=== PATIENT | female | born 1945 | race Caucasian/White ===

== ENCOUNTER 2019-11-25 03:09 | Inpatient (IN) | payer MEDICARE ==
[~2019-11-25] VITALS: Ht 152.4 cm; Wt 47.1 kg
[~2019-11-25 03:09] MED LIST: ALBU2.5V14 NEB; ALPR0.5T6 PO; ASPI-482 PO; CYCL10TA2 PO; DIGO0.12 PO; FURO-69 PO; HYDR-2761 PO; IPRA4AER IH; LISI-334 PO; LOVA40TA2 PO; RANI75TA89 PO; SERT50TA8 PO
[2019-11-25 03:51] LABS: BILIRUBIN,URINE NEGATIVE (NEG); CLARITY,URINE TURBID; COLOR,URINE YELLOW; NITRITE,URINE POSITIVE (NEG); PROTEIN,URINE 30 mg/dL (NEG-TRACE); UROBILINOGEN,URINE 0.2 mg/dL (0.2 mg/dL)
[2019-11-25 03:54] LABS: RBC,URINE OCC /HPF (0-2)
--- NOTE | 2019-11-25 03:54 | PHYS DOC ---
Past Medical History Past Medical History: CHF, COPD, Hypertension, Other Additional Past Medical Histor: EMPHYSEMA, KIDNEY DISEASE, MYLODYSPLASTIC SYNDROME Past Surgical History: Other Additional Past Surgical Histo: SUPRAPUBIC CATHATER PLACEMENT Smoking Status: Former Smoker Alcohol Use: None Drug Use: None General Adult EDM: Chief Complaint: NAUSEA/VOMITING/DIARRHA HPI: HPI: Erin Armstrong is a 74-year-old female who presents with 2 weeks of general malaise. She states that over the last 2 weeks she has been constantly feeling general malaise as well as lightheadedness when she stands up beginning about 1 week ago. She states that approximately 5 hours prior to arrival she had an episode of diarrhea followed by nausea with 3 episodes of vomiting clear fluid. She affirms suprapubic abdominal pain that feels "like there is a ball down there". Patient has a suprapubic catheter that has been in place for approximately 2 weeks. She states that she has used a suprapubic catheter for several years. Patient affirms a history of myelodysplastic syndrome for which she was managed by the [facility] and received a chemotherapeutic. She has not been treated for this in some time. Patient states that she has lost approximately 40 pounds, 135-95, in the last 6 months. Patient affirms a history of atrial fibrillation and denies palpitations and chest pain since onset. Patient has history of COPD and is on 3 L home oxygen. She currently affirms shortness of breath and a dry cough, but these are not new problems for her. Review of Systems: Review of Systems: Constitutional: Denies fever; affirms chills; weight loss Eyes: Denies redness or eye pain HENT: Denies nasal congestion or sore throat Respiratory: Affirms cough and shortness of breath Cardiovascular: Denies chest pain or palpitations GI: Affirms abdominal pain, nausea, and vomiting : Denies dysuria or hematuria; suprapubic catheter use Musculoskeletal: Denies back pain or joint pain Integument: Denies rash or skin lesions Neurologic: Denies headache, focal weakness or sensory changes Complete systems were reviewed and found to be within normal limits, except as documented in this note. Current Medications: Current Medications Medications (Trade) Dose Ordered Sig/Glenn Start Time Stop Time Status Last Admin Dose Admin Famotidine (Pepcid Vial) 20 mg 1X ONCE 11/25/19 04:00 11/25/19 04:01 Ondansetron HCl (Zofran) 4 mg 1X ONCE 11/25/19 04:00 11/25/19 04:01 Sodium Chloride 1,000 ml @ 1,000 mls/hr 1X ONCE 11/25/19 04:00 11/25/19 04:59 Allergies: Allergies: Allergies Coded Allergies Type Severity Reaction Last Updated Verified Sulfa (Sulfonamide Antibiotics) Allergy Mild HIVES 09/25/13 Yes Physical Exam: PE: Constitutional: malnourished, no acute distress, non-toxic appearance HENT: Normocephalic, atraumatic Neck: Normal range of motion, no tenderness, supple Lungs & Thorax: No respiratory distress, equal chest rise and fall, breath sounds diminished in all lung contreras Abdomen: Soft, suprapubic tenderness to palpation, suprapubic catheter is in place without surrounding erythema Skin: dry, no erythema, no rash, cold to the touch, appears thin Extremities: No tenderness, ROM intact, no edema, radial 2+, dorsalis pedis 2+, posterior tibial 2+ Neurologic: Alert and oriented X 3, normal motor function, normal sensory function, no focal deficits noted Psychologic: Affect normal, judgment normal EKG: EKG: @ 332 Normal sinus rhythm at [address] abnormalities No T wave abnormalities QRS 82 ms QT 316 ms 395 QTc Radiology/Procedures: Radiology/Procedures: PROCEDURE: CT CHEST ABDOMEN PELVIS WO Examination: CT chest abdomen pelvis without contrast HISTORY: History of cough, abdominal pain COMPARISON: None available Technique: Axial CT images of the chest abdomen pelvis were performed without contrast. Coronal and sagittal reformats are performed. Exposure: One or more of the following individualized dose reduction techniques were utilized for this examination: 1. Automated exposure control 2. Adjustment of the mA and/or kV according to patient size 3. Use of iterative reconstruction technique FINDINGS: The central airways are patent. Heart size grossly appears unremarkable. Coronary artery calcifications identified. No radiologically significant mediastinal lymphadenopathy is identified. Moderate bilateral lung emphysematous changes. Minimal airspace opacities identified in the right upper lobe, left lingula and in the bibasilar lungs likely atelectasis or infiltrates No evidence of free air identified in the abdomen. The evaluation of the solid organs is limited due to lack of IV contrast. The evaluation of bowel is limited due to lack of oral contrast. The visualized noncontrasted liver, spleen, adrenals grossly appears unremarkable Cholecystectomy clips identified. The stomach is mildly distended. The visualized pancreas grossly appears unremarkable The small bowel is nondilated. Tellez catheter balloon identified in the urinary bladder. Multiple stones identified in the urinary bladder the largest measuring 9 mm. No evidence of intrarenal collecting system calculi or hydronephrosis. Moderate aortic atherosclerosis. Sclerotic densities identified in the bilateral hip joint likely changes of avascular necrosis.. Mild degenerative changes thoracic spine. Moderate degenerative changes lumbar spine most at L4-L5 vertebral level. IMPRESSION: 1. Urinary bladder stones. 2. Mild airspace opacities identified in the lungs likely atelectasis or infiltrates. Moderate bilateral lung emphysematous changes. 3. Cholecystectomy changes. 4. Avascular necrosis bilaterally femoral heads. Electronically signed by: Oc Jordan MD (11/25/2019 4:49 AM) [id number] Course & Med Decision Making: Course & Med Decision Making Pertinent Labs and Imaging studies reviewed. (See chart for details) [] Dragon Disclaimer: Dragon Disclaimer: This electronic medical record was generated, in whole or in part, using a voice recognition dictation system. Departure Departure Impression: Primary Impression: Generalized weakness Additional Impressions: Complicated UTI (urinary tract infection) Person under investigation for COVID-19 Disposition: ADMITTED INPATIENT Admitting Physician: CLAUDIO (Riffel) Condition: STABLE Referrals: ESTEBAN DE LUNA MD (PCP) Justicifation of Admission Dx: Justifications for Admission: Justification of Admission Dx: Yes Comments: Generalized weakness, complicated UTI, COVID PUI COVID-19 Assessment: COVID-19 Patient Risks: Age 65 or older: Yes Sign of co-morbidity: Yes Exp to person + for COVID: No Exp to PUI: No Travel from affected area: No Lower respiratory symptoms: Yes Fever: No PPE Use: Full PPE with N95 mask or PAPR: Yes KATERYNA NELSON DO Nov 25, 2019 03:54
[2019-11-25 03:55] LABS: BACTERIA,URINE MANY /HPF (0-FEW); SQUAMOUS EPITHELIAL CELL,UR FEW /LPF; WBC,URINE TNTC /HPF (0-4)
[2019-11-25] MEDS ORDERED: IV NORMAL SALINE 1000ML BAG 1,000 ML IV ONE (04:00)
[2019-11-25] MEDS ORDERED: FAMOTIDINE 20 MG/2 ML VIAL IVP ONE (04:00)
[2019-11-25] MEDS ORDERED: DICYCLOMINE 20 MG/2 ML VIAL. IM ONE (04:00)
[2019-11-25] MEDS ORDERED: ONDANSETRON PF 4 MG/2 ML VIAL. IVP ONE (04:00)
[2019-11-25 04:07] LABS: BASO % 0 % (0-3); EOS % 0 % (0-3); HEMOGLOBIN 9.3 g/dL (12.0-15.5); LYMPH # 0.6 x10^3/uL (1.0-4.8); LYMPH % 5 % (24-48); MEAN CORPUSCULAR HEMOGLOBIN 31 pg (25-35); MEAN CORPUSCULAR HGB CONC 32 g/dL (31-37); MEAN CORPUSCULAR VOLUME 98 fL (79-100); MONO # 0.5 x10^3/uL (0.0-1.1); MONO % 4 % (0-9); NEUT # 11.8 x10^3/uL (1.8-7.7); NEUT % 91 % (31-73); PLATELET COUNT 193 x10^3/uL (140-400); RED BLOOD COUNT 2.96 x10^6/uL (3.50-5.40); RED CELL DISTRIBUTION WIDTH 12.8 % (11.5-14.5)
--- NOTE | 2019-11-25 04:10 | EKG ---
[facility] [address] [place] [address] Test Date: 2019-11-25 Test Time: 03:32:11 Pat Name: BOB KINGSLEY Department: Room: Gender: F Pediatric Care Coordinator: [id number] : 1945 Requested By: KATERYNA NELSON Order Number: [id number] Reading MD: Measurements Intervals [place] Rate: 94 P: 59 WI: 138 QRS: 77 QRSD: 82 T: 60 QT: 316 QTc: 395 Interpretive Statements SINUS RHYTHM NORMAL ECG RI6.02 No previous ECG available for comparison
[2019-11-25 04:15] LABS: BLOOD UREA NITROGEN 29 mg/dL (7-20); BUN/CREATININE RATIO 22 (6-20); CALCIUM 9.3 mg/dL (8.5-10.1); CHLORIDE 98 mmol/L (98-107); CREATININE 1.3 mg/dL (0.6-1.0); GFR 40.3; GLUCOSE 147 mg/dL (70-99); POTASSIUM 4.2 mmol/L (3.5-5.1); SODIUM 143 mmol/L (136-145)
[2019-11-25 04:18] LABS: ANION GAP 0 (6-14); CARBON DIOXIDE > 45 mmol/L (21-32); PROTHROMBIN TIME PATIENT 12.2 SEC (11.7-14.0)
[2019-11-25 04:21] LABS: ALBUMIN 3.4 g/dL (3.4-5.0); ALBUMIN/GLOBULIN RATIO 1.1 (1.0-1.7); ALK PHOS 61 U/L (46-116); ALT (SGPT) 19 U/L (14-59); AST (SGOT) 18 U/L (15-37); LIPASE 172 U/L (73-393); TOTAL BILIRUBIN 0.5 mg/dL (0.2-1.0); TOTAL PROTEIN 6.5 g/dL (6.4-8.2)
[2019-11-25] MEDS ORDERED: cefTRIAXone IV Push 1 GM VIAL. IVP ONE (04:30)
[2019-11-25 04:31] LABS: CREATINE KINASE 24 U/L (26-192)
--- NOTE | 2019-11-25 04:52 | RAD ---
Examination: CT chest abdomen pelvis without contrast HISTORY: History of cough, abdominal pain COMPARISON: None available Technique: Axial CT images of the chest abdomen pelvis were performed without contrast. Coronal and sagittal reformats are performed. Exposure: One or more of the following individualized dose reduction techniques were utilized for this examination: 1. Automated exposure control 2. Adjustment of the mA and/or kV according to patient size 3. Use of iterative reconstruction technique FINDINGS: The central airways are patent. Heart size grossly appears unremarkable. Coronary artery calcifications identified. No radiologically significant mediastinal lymphadenopathy is identified. Moderate bilateral lung emphysematous changes. Minimal airspace opacities identified in the right upper lobe, left lingula and in the bibasilar lungs likely atelectasis or infiltrates No evidence of free air identified in the abdomen. The evaluation of the solid organs is limited due to lack of IV contrast. The evaluation of bowel is limited due to lack of oral contrast. The visualized noncontrasted liver, spleen, adrenals grossly appears unremarkable Cholecystectomy clips identified. The stomach is mildly distended. The visualized pancreas grossly appears unremarkable The small bowel is nondilated. Tellez catheter balloon identified in the urinary bladder. Multiple stones identified in the urinary bladder the largest measuring 9 mm. No evidence of intrarenal collecting system calculi or hydronephrosis. Moderate aortic atherosclerosis. Sclerotic densities identified in the bilateral hip joint likely changes of avascular necrosis.. Mild degenerative changes thoracic spine. Moderate degenerative changes lumbar spine most at L4-L5 vertebral level. IMPRESSION: 1. Urinary bladder stones. 2. Mild airspace opacities identified in the lungs likely atelectasis or infiltrates. Moderate bilateral lung emphysematous changes. 3. Cholecystectomy changes. 4. Avascular necrosis bilaterally femoral heads. Electronically signed by: Oc Jordan MD (11/25/2019 4:49 AM) [facility]
[2019-11-25] MEDS ORDERED: ONDANSETRON PF 4 MG/2 ML VIAL. IV PRN (05:00)
[2019-11-25] MEDS ORDERED: fentaNYL PF VIAL 100 MCG/2 ML VIAL IV ONE (05:15)
[2019-11-25 06:30] LABS: % BANDS 1 % (0-9); % LYMPHS 7 % (24-48); % MONOS 2 % (0-10); % SEGS 90 % (35-66); PLT ESTIMATE ADEQUATE (ADEQUATE)
[2019-11-25] MEDS ORDERED: AZEL23SP NS (06:32)
[2019-11-25 06:45] VITALS: BP 140/60
[2019-11-25] MEDS: fentaNYL PF VIAL 100 MCG/2 ML VIAL IV PRN ×2 (08:45→10:11)
[2019-11-25] MEDS: IV NORMAL SALINE 1000ML BAG 1,000 ML IV SCH ×2 (10:00→17:09)
--- NOTE | 2019-11-25 10:16 | PDOC1 ---
History and Physical Date of Admission Date of Admission DATE: 11/25/19 TIME: 10:01 Identification/Chief Complaint Chief Complaint Weakness Source Source: Patient History of Present Illness History of Present Illness Patient is a 74-year-old female with past medical history of myelodysplastic syndrome, suprapubic catheter, COPD on 3 L of home oxygen, who presents for worsening generalized weakness over the past 2 weeks. The day of admission patient had associated diarrhea nausea and vomiting x3. She states she has had a suprapubic catheter in place for several years, recently exchanged 2 weeks ago. She previously received chemotherapy at [facility], and states her last treatment was in August 2017. She was at home with her son. Currently complains of some mild suprapubic tenderness and nausea. Denies chest pain, denies fever. Past Medical History Past Medical History COPD on 3 L home oxygen, emphysema, CHF, atrial fibrillation, hypertension, CKD, myelodysplastic syndrome Past Surgical History Past Surgical History Suprapubic catheter placement Family History Family History: Kidney Disease Social History Smoke: Quit ALCOHOL: none Drugs: None Current Medications Current Medications Current Medications Ondansetron HCl (Zofran) 4 mg 1X ONCE IVP Last administered on 11/25/19at 03:51; Start 11/25/19 at 04:00; Stop 11/25/19 at 04:01; Status DC Famotidine (Pepcid Vial) 20 mg 1X ONCE IVP Last administered on 11/25/19at 03:51; Start 11/25/19 at 04:00; Stop 11/25/19 at 04:01; Status DC Sodium Chloride 1,000 ml @ 1,000 mls/hr 1X ONCE IV Last administered on 11/25/19at 03:51; Start 11/25/19 at 04:00; Stop 11/25/19 at 04:59; Status DC Dicyclomine HCl (Bentyl) 20 mg 1X ONCE IM Last administered on 11/25/19at 03:51; Start 11/25/19 at 04:00; Stop 11/25/19 at 04:01; Status DC Ceftriaxone Sodium (Rocephin) 1 gm 1X ONCE IVP Last administered on 11/25/19at 04:58; Start 11/25/19 at 04:30; Stop 11/25/19 at 04:31; Status DC Ondansetron HCl (Zofran) 4 mg PRN Q8HRS PRN IV NAUSEA/VOMITING 1ST CHOICE; Start 11/25/19 at 05:00; Stop 11/26/19 at 04:59 Fentanyl Citrate (Fentanyl 2ml Vial) 50 mcg PRN Q2HRS PRN IV SEVERE PAIN 7-10; Start 11/25/19 at 05:00 Fentanyl Citrate (Fentanyl 2ml Vial) 50 mcg 1X ONCE IV ; Start 11/25/19 at 05:15; Stop 11/25/19 at 05:16; Status DC Enoxaparin Sodium (Lovenox 40mg Syringe) 40 mg Q24H SQ ; Start 11/25/19 at 10:00; Status UNV Active Scripts Active Reported Dymista Nasal [place] (Azelastine/Fluticasone) 23 Gm [place].pump 1 [place] NS BID Alprazolam 0.5 Mg Tablet 0.5 Mg PO PRN Q6HRS PRN Hydrocodone-Apap 5-325 (Hydrocodone Bit/Acetaminophen) 1 Each Tablet 1 Tab PO QID Cyclobenzaprine Hcl 10 Mg Tablet 10 Mg PO TID Sertraline Hcl 50 Mg Tablet 50 Mg PO DAILY Digoxin 0.125 Mg/2.5 Ml Solution 0.125 Mg PO DAILY Combivent Respimat Inhal (Ipratropium/Albuterol Sulfate) 4 Gm Aer.w.adap 2 Inh IH QID Albuterol Sulfate Conc Neb Soln (Albuterol Sulfate) 2.5 Mg/0.5 Ml Vial.neb 2.5 Mg NEB Zantac 75 (Ranitidine Hcl) 75 Mg Tablet 75 Mg PO BID Aspir 81 (Aspirin) 81 Mg Tablet.dr 81 Mg PO Lovastatin 40 Mg Tablet 40 Mg PO HS Lisinopril 20 Mg Tablet 1 Tab PO DAILY Lasix (Furosemide) 20 Mg Tablet 20 Mg PO DAILY Allergies Allergies: Coded Allergies: Sulfa (Sulfonamide Antibiotics) (Verified Allergy, Mild, HIVES, 09/25/13) ROS Review of System GENERAL: Weakness. Denies fevers. SKIN: No bruising, hair changes or rashes. EYES: No blurred, double or loss of vision. NOSE AND THROAT: No history of nosebleeds, hoarseness or sore throat. HEART: Denies chest pain, denies palpitations. LUNGS: Denies cough, hemoptysis, wheezing. GASTROINTESTINAL:Nausea, vomiting, diarrhea. Denies abdominal pain. GENITOURINARY: Denies hematuria. NEUROLOGIC: Denies history of numbness, tingling, tremor or weakness. PSYCHIATRIC: Denies anxiety, denies depression. ENDOCRINE: No history of heat or cold intolerance, polyuria or polydipsia. EXTREMITIES: Denies muscle weakness, joint pain, pain on walking or stiffness. Physical Exam Physical Exam General: Alert, Oriented X3, Cooperative, mild distress HEENT: PERRLA, EOMI Lungs: Coarse breath sounds bilaterally Heart: RRR, no jug vein distention Cardiovascular: S1, S2 Abdomen: Mild suprapubic tenderness, suprapubic catheter in place. Normal bowel sounds, Soft Extremities: No clubbing, No cyanosis Skin: No rashes, No significant lesion Neuro: Normal speech, Normal tone, Sensation intact Psych/Mental Status: Mental status NL, Mood NL Vitals Vitals Vital Signs Date Time Temp Pulse Resp B/P (MAP) Pulse Ox O2 Delivery O2 Flow Rate FiO2 11/25/19 06:45 98.4 101 20 140/60 (86) 100 Nasal Cannula 2.0 98.4 Labs Labs Laboratory Tests Test 11/25/19 03:44 11/25/19 03:55 11/25/19 07:50 Urine Collection Type Unknown Urine Color Yellow Urine Clarity Turbid Urine pH 6.0 (<5.0-8.0) Urine Specific [place] 1.020 (1.000-1.030) Urine Protein 30 mg/dL (NEG-TRACE) Urine Glucose (UA) Negative mg/dL (NEG) Urine Ketones (Stick) Negative mg/dL (NEG) Urine Blood Negative (NEG) Urine Nitrite Positive (NEG) Urine Bilirubin Negative (NEG) Urine Urobilinogen Dipstick 0.2 mg/dL (0.2 mg/dL) Urine Leukocyte Esterase Large (NEG) Urine RBC Occ /HPF (0-2) Urine WBC Tntc /HPF (0-4) Urine Squamous Epithelial Cells Few /LPF Urine Bacteria Many /HPF (0-FEW) Urine Mucus Mod /LPF White Blood Count 13.0 x10^3/uL (4.0-11.0) Red Blood Count 2.96 x10^6/uL (3.50-5.40) Hemoglobin 9.3 g/dL (12.0-15.5) Hematocrit 29.0 % (36.0-47.0) Mean Corpuscular Volume 98 fL (79-100) Mean Corpuscular Hemoglobin 31 pg (25-35) Mean Corpuscular Hemoglobin Concent 32 g/dL (31-37) Red Cell Distribution Width 12.8 % (11.5-14.5) Platelet Count 193 x10^3/uL (140-400) Neutrophils (%) (Auto) 91 % (31-73) Lymphocytes (%) (Auto) 5 % (24-48) Monocytes (%) (Auto) 4 % (0-9) Eosinophils (%) (Auto) 0 % (0-3) Basophils (%) (Auto) 0 % (0-3) Neutrophils # (Auto) 11.8 x10^3/uL (1.8-7.7) Lymphocytes # (Auto) 0.6 x10^3/uL (1.0-4.8) Monocytes # (Auto) 0.5 x10^3/uL (0.0-1.1) Eosinophils # (Auto) 0.0 x10^3/uL (0.0-0.7) Basophils # (Auto) 0.0 x10^3/uL (0.0-0.2) Segmented Neutrophils % 90 % (35-66) Band Neutrophils % 1 % (0-9) Lymphocytes % 7 % (24-48) Monocytes % 2 % (0-10) Platelet Estimate Adequate (ADEQUATE) Prothrombin Time 12.2 SEC (11.7-14.0) Prothromb Time International Ratio 0.9 (0.8-1.1) Activated Partial Thromboplast Time 19 SEC (24-38) Sodium Level 143 mmol/L (136-145) Potassium Level 4.2 mmol/L (3.5-5.1) Chloride Level 98 mmol/L (98-107) Carbon Dioxide Level > 45 mmol/L (21-32) Anion Gap 0 (6-14) Blood Urea Nitrogen 29 mg/dL (7-20) Creatinine 1.3 mg/dL (0.6-1.0) Estimated GFR (Cockcroft-Gault) 40.3 BUN/Creatinine Ratio 22 (6-20) Glucose Level 147 mg/dL (70-99) Lactic Acid Level 1.2 mmol/L (0.4-2.0) Calcium Level 9.3 mg/dL (8.5-10.1) Magnesium Level 2.0 mg/dL (1.8-2.4) Total Bilirubin 0.5 mg/dL (0.2-1.0) Aspartate Amino Transf (AST/SGOT) 18 U/L (15-37) Alanine Aminotransferase (ALT/SGPT) 19 U/L (14-59) Alkaline Phosphatase 61 U/L (46-116) Creatine Kinase 24 U/L (26-192) Creatine Kinase MB (Mass) < 0.5 ng/mL (0.0-3.6) Creatine Kinase MB Relative Index % (0-4) Troponin I Quantitative < 0.017 ng/mL (0.000-0.055) < 0.017 ng/mL (0.000-0.055) Total Protein 6.5 g/dL (6.4-8.2) Albumin 3.4 g/dL (3.4-5.0) Albumin/Globulin Ratio 1.1 (1.0-1.7) Lipase 172 U/L (73-393) Laboratory Tests Test 11/25/19 03:44 11/25/19 03:55 11/25/19 07:50 Urine Collection Type Unknown Urine Color Yellow Urine Clarity Turbid Urine pH 6.0 (<5.0-8.0) Urine Specific [place] 1.020 (1.000-1.030) Urine Protein 30 mg/dL (NEG-TRACE) Urine Glucose (UA) Negative mg/dL (NEG) Urine Ketones (Stick) Negative mg/dL (NEG) Urine Blood Negative (NEG) Urine Nitrite Positive (NEG) Urine Bilirubin Negative (NEG) Urine Urobilinogen Dipstick 0.2 mg/dL (0.2 mg/dL) Urine Leukocyte Esterase Large (NEG) Urine RBC Occ /HPF (0-2) Urine WBC Tntc /HPF (0-4) Urine Squamous Epithelial Cells Few /LPF Urine Bacteria Many /HPF (0-FEW) Urine Mucus Mod /LPF White Blood Count 13.0 x10^3/uL (4.0-11.0) Red Blood Count 2.96 x10^6/uL (3.50-5.40) Hemoglobin 9.3 g/dL (12.0-15.5) Hematocrit 29.0 % (36.0-47.0) Mean Corpuscular Volume 98 fL (79-100) Mean Corpuscular Hemoglobin 31 pg (25-35) Mean Corpuscular Hemoglobin Concent 32 g/dL (31-37) Red Cell Distribution Width 12.8 % (11.5-14.5) Platelet Count 193 x10^3/uL (140-400) Neutrophils (%) (Auto) 91 % (31-73) Lymphocytes (%) (Auto) 5 % (24-48) Monocytes (%) (Auto) 4 % (0-9) Eosinophils (%) (Auto) 0 % (0-3) Basophils (%) (Auto) 0 % (0-3) Neutrophils # (Auto) 11.8 x10^3/uL (1.8-7.7) Lymphocytes # (Auto) 0.6 x10^3/uL (1.0-4.8) Monocytes # (Auto) 0.5 x10^3/uL (0.0-1.1) Eosinophils # (Auto) 0.0 x10^3/uL (0.0-0.7) Basophils # (Auto) 0.0 x10^3/uL (0.0-0.2) Segmented Neutrophils % 90 % (35-66) Band Neutrophils % 1 % (0-9) Lymphocytes % 7 % (24-48) Monocytes % 2 % (0-10) Platelet Estimate Adequate (ADEQUATE) Prothrombin Time 12.2 SEC (11.7-14.0) Prothromb Time International Ratio 0.9 (0.8-1.1) Activated Partial Thromboplast Time 19 SEC (24-38) Sodium Level 143 mmol/L (136-145) Potassium Level 4.2 mmol/L (3.5-5.1) Chloride Level 98 mmol/L (98-107) Carbon Dioxide Level > 45 mmol/L (21-32) Anion Gap 0 (6-14) Blood Urea Nitrogen 29 mg/dL (7-20) Creatinine 1.3 mg/dL (0.6-1.0) Estimated GFR (Cockcroft-Gault) 40.3 BUN/Creatinine Ratio 22 (6-20) Glucose Level 147 mg/dL (70-99) Lactic Acid Level 1.2 mmol/L (0.4-2.0) Calcium Level 9.3 mg/dL (8.5-10.1) Magnesium Level 2.0 mg/dL (1.8-2.4) Total Bilirubin 0.5 mg/dL (0.2-1.0) Aspartate Amino Transf (AST/SGOT) 18 U/L (15-37) Alanine Aminotransferase (ALT/SGPT) 19 U/L (14-59) Alkaline Phosphatase 61 U/L (46-116) Creatine Kinase 24 U/L (26-192) Creatine Kinase MB (Mass) < 0.5 ng/mL (0.0-3.6) Creatine Kinase MB Relative Index % (0-4) Troponin I Quantitative < 0.017 ng/mL (0.000-0.055) < 0.017 ng/mL (0.000-0.055) Total Protein 6.5 g/dL (6.4-8.2) Albumin 3.4 g/dL (3.4-5.0) Albumin/Globulin Ratio 1.1 (1.0-1.7) Lipase 172 U/L (73-393) VTE Prophylaxis Ordered VTE Prophylaxis Devices: No VTE Pharmacological Prophylaxi: Yes Assessment/Plan Assessment/Plan Complicated UTI Vasomotor nephropathy History of myelodysplastic syndrome Generalized weakness Plan: Patient with a chronic history of suprapubic Tellez catheter that was last replaced 2 weeks ago. Her catheter was exchanged in the ER. She received 1 g of Rocephin IV in the ER, will continue this treatment. Urine cultures pending. IV normal saline, Zofran PRN PT/OT Cardiac diet VTE prophylaxis Full code, patient names her daughter as her DPOA Justifications for Admission Other Justification MONICA GRIMM MD Nov 25, 2019 10:16
[2019-11-25] MEDS ORDERED: ENOXAPARIN 30 MG/0.3 ML SYRINGE. SQ SCH (11:00)
[2019-11-25 11:20] VITALS: BP 115/53
--- NOTE | 2019-11-25 12:14 | NUR ---
RUDY following. Spoke with RN and reviewed chart. Coordinate care with Dr. South. Pt from home with son. Pt's spouse and pt's son recently moved in to help provide care. Pt has 5 adult children and daughter Katarzyna ([phone]) is the primary contact. RUDY attempted to call into pt's room but there was no answer. RUDY spoke with dtr Katarzyna and discharge plan is home with possible HH if needed. Pt currently on a cardiac diet, 2l 02, IV Rocephin and IV Fentanyl for pain. Pt is COVID pending. Pt has home 02 per the dtr. RUDY following. Addendum: 11/26/19 at 1307 by JULIO GRANT pt transferred to [facility] to follow.
[2019-11-25] MEDS ORDERED: CYCLOBENZAPRINE 10 MG TABLET. PO PRN (13:00)
[2019-11-25] MEDS ORDERED: ALPRAZolam 0.5 MG TABLET PO PRN (13:00)
[2019-11-25] MEDS ORDERED: NON FORMULARY ITEM (Ipratropium/Albuterol Sulfate (Combivent Respimat Inhal) 2 INH) IH SCH (13:00)
[2019-11-25] MEDS: HYDROcodone/APAP 5/325MG 1 TAB TABLET PO SCH ×3 (13:14→20:44)
[2019-11-25 15:26] VITALS: BP 83/48
[2019-11-25] MEDS ORDERED: IV NORMAL SALINE 500ML BAG 500 ML IV ONE (15:45)
[2019-11-25] MEDS ORDERED: IPRATRPIUM/ALBUTEROL 0.5/2.5MG 3 ML NEBU. NEB SCH (16:00)
[2019-11-25 16:51] VITALS: BP 111/78
[2019-11-25 19:00] VITALS: BP 127/80
[2019-11-25] MEDS ORDERED: IPRATRPIUM/ALBUTEROL 0.5/2.5MG 3 ML NEBU. NEB PRN (19:30)
[2019-11-25] MEDS: ATORVASTATIN CALCIUM 10 MG TABLET. PO SCH (20:44)
[2019-11-25] MEDS ORDERED: AZELASTINE NS SCH (21:00)
[2019-11-25] MEDS ORDERED: FLUTICASONE NS SCH (21:00)
[2019-11-25] MEDS: AZELASTINE NASAL SPRAY 30ML BOTTLE. NS SCH (21:29)
[2019-11-25] MEDS: FLUTICASONE 50MCG/NASAL SPRAY 16GM BOTTLE. NS SCH (21:29)
[2019-11-25 23:00] VITALS: BP 116/55
[2019-11-26 03:45] VITALS: BP 123/60
[2019-11-26 03:57] LABS: BASO % 0 % (0-3); EOS # 0.1 x10^3/uL (0.0-0.7); EOS % 1 % (0-3); HEMOGLOBIN 7.7 g/dL (12.0-15.5); LYMPH # 1.2 x10^3/uL (1.0-4.8); LYMPH % 10 % (24-48); MEAN CORPUSCULAR HEMOGLOBIN 31 pg (25-35); MEAN CORPUSCULAR HGB CONC 31 g/dL (31-37); MEAN CORPUSCULAR VOLUME 101 fL (79-100); MONO # 0.6 x10^3/uL (0.0-1.1); MONO % 5 % (0-9); NEUT # 9.6 x10^3/uL (1.8-7.7); NEUT % 84 % (31-73); PLATELET COUNT 135 x10^3/uL (140-400); RED BLOOD COUNT 2.48 x10^6/uL (3.50-5.40); RED CELL DISTRIBUTION WIDTH 12.8 % (11.5-14.5); WHITE BLOOD COUNT 11.5 x10^3/uL (4.0-11.0)
[2019-11-26 04:12] LABS: BLOOD UREA NITROGEN 18 mg/dL (7-20); CALCIUM 8.4 mg/dL (8.5-10.1); CARBON DIOXIDE 38 mmol/L (21-32); CHLORIDE 107 mmol/L (98-107); CREATININE 0.9 mg/dL (0.6-1.0); GFR 61.5; GLUCOSE 105 mg/dL (70-99); POTASSIUM 4.4 mmol/L (3.5-5.1); SODIUM 143 mmol/L (136-145)
[2019-11-26 04:16] LABS: DIG 0.5 ng/mL (0.9-2.0)
[2019-11-26] MEDS: IV NORMAL SALINE 1000ML BAG 1,000 ML IV SCH (05:54)
[2019-11-26] MEDS: fentaNYL PF VIAL 100 MCG/2 ML VIAL IV PRN (05:55)
[2019-11-26 07:00] VITALS: BP 111/25
[2019-11-26] MEDS: HYDROcodone/APAP 5/325MG 1 TAB TABLET PO SCH ×4 (08:27→21:00)
[2019-11-26] MEDS: SERTRALINE 50 MG TABLET. PO SCH (08:27)
[2019-11-26] MEDS: DIGOXIN 125 MCG TABLET. PO SCH (08:28)
[2019-11-26] MEDS: FLUTICASONE 50MCG/NASAL SPRAY 16GM BOTTLE. NS SCH ×2 (09:55→21:00)
[2019-11-26] MEDS: cefTRIAXone IV Push 1 GM VIAL. IVP SCH (09:55)
[2019-11-26] MEDS: AZELASTINE NASAL SPRAY 30ML BOTTLE. NS SCH ×2 (09:55→21:00)
[2019-11-26] MEDS: FUROSEMIDE 20 MG TABLET PO SCH (10:01)
--- NOTE | 2019-11-26 10:36 | PDOC ---
[employer] [facility] PROGRESS NOTE Date of Service DOS: DATE: 11/26/19 TIME: 10:29 Chief Complaint Chief Complaint Weakness History of Present Illness History of Present Illness Discussed with RN, patient working with physical therapy yesterday and today. Still with some suprapubic tenderness, improving. Patient still undecided about home with home health, will await physical therapy evaluation and recom mendations. Can likely discharge tomorrow with oral antibiotics to complete treatment of complicated UTI for 7 days. Echocardiogram pending. Vitals/I&O Vitals/I&O: Vital Signs Date Time Temp Pulse Resp B/P (MAP) Pulse Ox O2 Delivery O2 Flow Rate FiO2 11/26/19 10:02 100 Nasal Cannula 1.5 11/26/19 08:28 89 111/25 11/26/19 07:00 97.6 16 97.6 I & O 11/25/19 11/25/19 11/26/19 15:00 23:00 07:00 Intake Total 1700 ml 60 ml Output Total 550 ml Balance 1700 ml -490 ml Physical Exam General: Alert, Oriented X3 Heart: Regular rate Lungs: Clear Abdomen: Other (Mild suprapubic tenderness) Extremities: No clubbing, No edema Skin: No rashes, No breakdown Labs Labs: Laboratory Tests Test 11/25/19 10:40 11/26/19 03:25 Troponin I Quantitative 0.020 ng/mL (0.000-0.055) White Blood Count 11.5 x10^3/uL (4.0-11.0) Red Blood Count 2.48 x10^6/uL (3.50-5.40) Hemoglobin 7.7 g/dL (12.0-15.5) Hematocrit 25.0 % (36.0-47.0) Mean Corpuscular Volume 101 fL (79-100) Mean Corpuscular Hemoglobin 31 pg (25-35) Mean Corpuscular Hemoglobin Concent 31 g/dL (31-37) Red Cell Distribution Width 12.8 % (11.5-14.5) Platelet Count 135 x10^3/uL (140-400) Neutrophils (%) (Auto) 84 % (31-73) Lymphocytes (%) (Auto) 10 % (24-48) Monocytes (%) (Auto) 5 % (0-9) Eosinophils (%) (Auto) 1 % (0-3) Basophils (%) (Auto) 0 % (0-3) Neutrophils # (Auto) 9.6 x10^3/uL (1.8-7.7) Lymphocytes # (Auto) 1.2 x10^3/uL (1.0-4.8) Monocytes # (Auto) 0.6 x10^3/uL (0.0-1.1) Eosinophils # (Auto) 0.1 x10^3/uL (0.0-0.7) Basophils # (Auto) 0.0 x10^3/uL (0.0-0.2) Sodium Level 143 mmol/L (136-145) Potassium Level 4.4 mmol/L (3.5-5.1) Chloride Level 107 mmol/L (98-107) Carbon Dioxide Level 38 mmol/L (21-32) Anion Gap (6-14) Blood Urea Nitrogen 18 mg/dL (7-20) Creatinine 0.9 mg/dL (0.6-1.0) Estimated GFR (Cockcroft-Gault) 61.5 Glucose Level 105 mg/dL (70-99) Calcium Level 8.4 mg/dL (8.5-10.1) Digoxin Level 0.5 ng/mL (0.9-2.0) Digoxin Last Dose Date Digoxin Last Dose Time 0900 Review of Systems Review of Systems: Denies dysuria, denies fever, denies nausea, denies vomiting. Assessment and Plan Assessmemt and Plan Plan: Home with home health, patient still undecided however. Can complete oral antibiotics as outpatient. Problems: (1) Generalized weakness (2) Complicated UTI (urinary tract infection) (3) Person under investigation for COVID-19 (4) Vasomotor nephropathy (5) History of myelodysplastic syndrome Comment Review of Relevant I have reviewed the following items augusto (where applicable) has been applied. Medications: Current Medications Medications (Trade) Dose Ordered Sig/Glenn Route PRN Reason Start Time Stop Time Status Last Admin Dose Admin Enoxaparin Sodium (Lovenox 30mg Syringe) 30 mg Q24H SQ 11/25/19 11:00 11/25/19 12:12 Ceftriaxone Sodium (Rocephin) 1 gm Q24H IVP 11/26/19 10:00 12/06/19 10:00 11/26/19 09:55 Alprazolam (Xanax) 0.5 mg PRN Q6HRS PRN PO ANXIETY / AGITATION 11/25/19 13:00 11/26/19 05:54 Furosemide (Lasix) 20 mg DAILY PO 11/26/19 09:00 11/26/19 10:01 Acetaminophen/ Hydrocodone Bitart (Lortab 5/325) 1 tab QID PO 11/25/19 13:00 11/26/19 08:27 Sertraline HCl (Zoloft) 50 mg DAILY PO 11/26/19 09:00 11/26/19 08:27 Digoxin (Lanoxin) 125 mcg DAILY PO 11/26/19 09:00 11/26/19 08:28 Atorvastatin Calcium (Lipitor) 10 mg QHS PO 11/25/19 21:00 11/25/19 20:44 Azelastine HCl (Astelin) 1 spray BID NS 11/25/19 21:00 11/26/19 09:55 Fluticasone Propionate (Flonase) 1 spray BID NS 11/25/19 21:00 11/26/19 09:55 Sodium Chloride 500 ml @ 500 mls/hr 1X ONCE IV 11/25/19 15:45 11/25/19 16:44 DC 11/25/19 15:45 Justifications for Admission Other Justification MONICA GRIMM MD Nov 26, 2019 10:36
[2019-11-26 11:00] VITALS: BP 115/34
[2019-11-26] MEDS: ENOXAPARIN 40 MG/0.4 ML SYRINGE. SQ SCH (12:00)
--- NOTE | 2019-11-26 13:24 | PDOC2 ---
DAWN CUEVAS RECREATIONAL PROGRAMS DIRECTOR 11/26/19 1324: CARDIAC CONSULT DATE OF CONSULT Date of Consult DATE: 11/26/19 TIME: 13:15 REASON FOR CONSULT Reason for Consult: tachycardia REFERRING PHYSICIAN Referring Physician: Dr. Wallace SOURCE Source: Chart review, Patient HISTORY OF PRESENT ILLNESS HISTORY OF PRESENT ILLNESS This is a 74 yo female who presented secondary to abdominal pain, nausea/vomiting, and diarrhea. Has had general malaise, lightheadedness for the last couple of weeks. UA noted for UTI upon arrival. Has chronic supra pubic catheter. Has a history of PAFIB. Previously followed with Dr. Hartman. Has not established care with new ict support engineer. Is on Digoxin at home for rate control. Is not on OAC. She denies any chest pain, palpitations, or shortness of breath. Is feeling better today. No further dizziness or nausea/vomiting. PAST MEDICAL HISTORY Cardiovascular: AFIB, HTN Pulmonary: COPD Heme/Onc: Other (myelodysplastic syndrome) Renal/: Chronic renal insuff, Other (suprapubic catheter) PAST SURGICAL HISTORY Past Surgical History: Cholecystectomy, Other (supra pubic catheter placement ) FAMILY HISTORY Family History: Heart Disease (mother ) SOCIAL HISTORY Smoke: Quit ALCOHOL: none Drugs: None Lives: Alone CURRENT MEDICATIONS CURRENT MEDICATIONS Current Medications Medications (Trade) Dose Ordered Sig/Glenn Route PRN Reason Start Time Stop Time Status Last Admin Dose Admin Ceftriaxone Sodium (Rocephin) 1 gm Q24H IVP 11/26/19 10:00 12/06/19 10:00 11/26/19 09:55 Furosemide (Lasix) 20 mg DAILY PO 11/26/19 09:00 11/26/19 10:01 Sertraline HCl (Zoloft) 50 mg DAILY PO 11/26/19 09:00 11/26/19 08:27 Digoxin (Lanoxin) 125 mcg DAILY PO 11/26/19 09:00 11/26/19 08:28 Atorvastatin Calcium (Lipitor) 10 mg QHS PO 11/25/19 21:00 11/25/19 20:44 Azelastine HCl (Astelin) 1 spray BID NS 11/25/19 21:00 11/26/19 09:55 Fluticasone Propionate (Flonase) 1 spray BID NS 11/25/19 21:00 11/26/19 09:55 Sodium Chloride 500 ml @ 500 mls/hr 1X ONCE IV 11/25/19 15:45 11/25/19 16:44 DC 11/25/19 15:45 ALLERGIES ALLERGIES: Coded Allergies: Sulfa (Sulfonamide Antibiotics) (Verified Allergy, Intermediate, HIVES, 11/26/19) ROS Review of System 14 point ROS conducted with pertinent positives noted above in HPI PHYSICAL EXAM General: Alert, Oriented X3, Cooperative, No acute distress HEENT: Atraumatic, Mucous membr. moist/pink Lungs: Clear to auscultation Heart: Regular rate (heart tones regular. Not on tele), Other (2/6 systolic murmur ) Abdomen: Soft, No tenderness Extremities: No edema Skin: No breakdown, No significant lesion Neuro: Normal speech, Sensation intact Psych/Mental Status: Mental status NL, Mood NL MUSCULOSKELETAL: Osteoarthritic changes both hands VITALS/I&O VITALS/I&O: Vital Signs Date Time Temp Pulse Resp B/P (MAP) Pulse Ox O2 Delivery O2 Flow Rate FiO2 11/26/19 11:00 98.2 101 16 115/34 (61) 99 Nasal Cannula 2.0 98.2 I & O 11/25/19 11/25/19 11/26/19 15:00 23:00 07:00 Intake Total 1700 ml 60 ml Output Total 550 ml Balance 1700 ml -490 ml LABS Lab: Laboratory Tests Test 11/26/19 03:25 White Blood Count 11.5 x10^3/uL (4.0-11.0) H Red Blood Count 2.48 x10^6/uL (3.50-5.40) L Hemoglobin 7.7 g/dL (12.0-15.5) L Hematocrit 25.0 % (36.0-47.0) L Mean Corpuscular Volume 101 fL (79-100) H Mean Corpuscular Hemoglobin 31 pg (25-35) Mean Corpuscular Hemoglobin Concent 31 g/dL (31-37) Red Cell Distribution Width 12.8 % (11.5-14.5) Platelet Count 135 x10^3/uL (140-400) L Neutrophils (%) (Auto) 84 % (31-73) H Lymphocytes (%) (Auto) 10 % (24-48) L Monocytes (%) (Auto) 5 % (0-9) Eosinophils (%) (Auto) 1 % (0-3) Basophils (%) (Auto) 0 % (0-3) Neutrophils # (Auto) 9.6 x10^3/uL (1.8-7.7) H Lymphocytes # (Auto) 1.2 x10^3/uL (1.0-4.8) Monocytes # (Auto) 0.6 x10^3/uL (0.0-1.1) Eosinophils # (Auto) 0.1 x10^3/uL (0.0-0.7) Basophils # (Auto) 0.0 x10^3/uL (0.0-0.2) Sodium Level 143 mmol/L (136-145) Potassium Level 4.4 mmol/L (3.5-5.1) Chloride Level 107 mmol/L (98-107) Carbon Dioxide Level 38 mmol/L (21-32) H Anion Gap (6-14) Blood Urea Nitrogen 18 mg/dL (7-20) Creatinine 0.9 mg/dL (0.6-1.0) Estimated GFR (Cockcroft-Gault) 61.5 Glucose Level 105 mg/dL (70-99) H Calcium Level 8.4 mg/dL (8.5-10.1) L Digoxin Level 0.5 ng/mL (0.9-2.0) L Digoxin Last Dose Date Digoxin Last Dose Time 0900 Laboratory Tests 11/26/19 03:25 Laboratory Tests 11/26/19 03:25 ASSESSMENT/PLAN ASSESSMENT/PLAN 1. Abdominal pain, nausea/vomiting; improved 2 . PAFIB; on digoxin for rate control. Dig level low. Heart tones regular. Not on tele. EKG with SR 3. Hypertension; controlled 4. Anemia, iron deficient; hgb 7.7. No obvious bleeding 5. CKD; stable 6. UTI with chronic suprapubic catheter 7. H/o myelodysplastic syndrome Recommendations Start ASA therapy. Monitor hgb, PLTs Digoxin for rate control. Will give additional IV dose today Baseline echo ordered; this can be arranged as an outpatient Will need cardiac followup. Ongoing antibiotic therapy for UTI Supportive care GERI DUFFY MD 11/26/192010: CARDIAC CONSULT ASSESSMENT/PLAN ASSESSMENT/PLAN patient seen and examined. Agree with COUNTER CLERK [employer]CTOR PARTS's assessment and plan. Abd pain/N/V improved PAF p-resently in [place] 2D echo to assess LVF. Plan event monitor and ischemic eval as outpatient Thank you for your consultation DAWN CUEVAS APRN Nov 26, 2019 13:24 GERI DUFFY MD Nov 26, 2019 20:11
--- NOTE | 2019-11-26 13:57 | PDOC2 ---
GI CONSULT Date of Service: DATE: 11/26/19 TIME: 13:39 Reason For Consult: abd pain HPI: HPI: 74 y/o female w/ suprapubic catheter and UTI. GI-guerrero, she had some nausea and diarrhea a couple days ago - resolved. Eating without issue now. She has had some intermittent diarrhea for a couple months - Imodium PRN helps. Also has some periumbilical pain sometimes after eating, sometimes before eating, sometimes after stooling, and sometimes before stooling. No pain now. Occasional heartburn improved w/ OTC meds PRN (Zantac listed on summary). No dysphagia, vomiting/hematemesis, hematochezia, melena, or change in appetite. Has lost "a lot" of weight unintentionally. H/o MDS and chemo, hasn't seen a german professor in awhile. Does see a urologist - "he said I was doing really good!" Used to take ASA, no longer does. S/p cholecystectomy for gallstones. No liver, pancreas, or PUD history. No previous EGD or colonoscopy. PMH: PMH: A Fib, HTN, COPD on home O2, CKD, MDS, anxiety chemo, cholecystectomy FH: Family History: Cancer (sister - pancreatic) Social History: Smoke: Quit ALCOHOL: none Drugs: None ROS: GEN: Denies fevers, chills, sweats HEENT: Denies blurred vision, sore throat CV: Denies chest pain RESP: Denies shortness of air, cough GI: Per HPI : Denies hematuria, dysuria ENDO: Denies weight changes NEURO: Denies confusion, dizziness MSK: Denies weakness, joint pain/swelling SKIN: Denies jaundice, pruritus Vitals: Vitals: Vital Signs Date Time Temp Pulse Resp B/P (MAP) Pulse Ox O2 Delivery O2 Flow Rate FiO2 11/26/19 11:00 98.2 101 16 115/34 (61) 99 Nasal Cannula 2.0 98.2 Labs: Labs: Laboratory Tests Test 11/26/19 03:25 White Blood Count 11.5 x10^3/uL (4.0-11.0) Red Blood Count 2.48 x10^6/uL (3.50-5.40) Hemoglobin 7.7 g/dL (12.0-15.5) Hematocrit 25.0 % (36.0-47.0) Mean Corpuscular Volume 101 fL (79-100) Mean Corpuscular Hemoglobin 31 pg (25-35) Mean Corpuscular Hemoglobin Concent 31 g/dL (31-37) Red Cell Distribution Width 12.8 % (11.5-14.5) Platelet Count 135 x10^3/uL (140-400) Neutrophils (%) (Auto) 84 % (31-73) Lymphocytes (%) (Auto) 10 % (24-48) Monocytes (%) (Auto) 5 % (0-9) Eosinophils (%) (Auto) 1 % (0-3) Basophils (%) (Auto) 0 % (0-3) Neutrophils # (Auto) 9.6 x10^3/uL (1.8-7.7) Lymphocytes # (Auto) 1.2 x10^3/uL (1.0-4.8) Monocytes # (Auto) 0.6 x10^3/uL (0.0-1.1) Eosinophils # (Auto) 0.1 x10^3/uL (0.0-0.7) Basophils # (Auto) 0.0 x10^3/uL (0.0-0.2) Sodium Level 143 mmol/L (136-145) Potassium Level 4.4 mmol/L (3.5-5.1) Chloride Level 107 mmol/L (98-107) Carbon Dioxide Level 38 mmol/L (21-32) Anion Gap (6-14) Blood Urea Nitrogen 18 mg/dL (7-20) Creatinine 0.9 mg/dL (0.6-1.0) Estimated GFR (Cockcroft-Gault) 61.5 Glucose Level 105 mg/dL (70-99) Calcium Level 8.4 mg/dL (8.5-10.1) Digoxin Level 0.5 ng/mL (0.9-2.0) Digoxin Last Dose Date Digoxin Last Dose Time 0900 Allergies: Coded Allergies: Sulfa (Sulfonamide Antibiotics) (Verified Allergy, Intermediate, HIVES, 11/26/19) Medications: Current Medications Medications (Trade) Dose Ordered Sig/Glenn Route PRN Reason Start Time Stop Time Status Last Admin Dose Admin Ceftriaxone Sodium (Rocephin) 1 gm Q24H IVP 11/26/19 10:00 9/26/20 10:00 11/26/19 09:55 Furosemide (Lasix) 20 mg DAILY PO 11/26/19 09:00 11/26/19 10:01 Sertraline HCl (Zoloft) 50 mg DAILY PO 11/26/19 09:00 11/26/19 08:27 Digoxin (Lanoxin) 125 mcg DAILY PO 11/26/19 09:00 11/26/19 08:28 Atorvastatin Calcium (Lipitor) 10 mg QHS PO 11/25/19 21:00 11/25/19 20:44 Azelastine HCl (Astelin) 1 spray BID NS 11/25/19 21:00 11/26/19 09:55 Fluticasone Propionate (Flonase) 1 spray BID NS 11/25/19 21:00 11/26/19 09:55 Sodium Chloride 500 ml @ 500 mls/hr 1X ONCE IV 11/25/19 15:45 11/25/19 16:44 DC 11/25/19 15:45 PE: GEN: NAD - was asleep HEENT: Atraumatic, PERRL LUNGS: diminished anteriorly, NC HEART: RRR ABD: SPC, soft, non-tender EXTREMITY: No edema SKIN: No rashes, no jaundice NEURO/PSYCH: A & O 3 - seems forgetful, also a bit tremulous A/P: A/P: UTI - has SPC Macrocytic anemia - h/o MDS Nausea (resolved), intermittent diarrhea (none now), periumbilical pain (vague history, no pain now), weight loss Occasional heartburn CRC screen - none S/p cholecystectomy FH pancreatic cancer COVID negative -- Currently without GI complaints. We discussed outpt EGD and colonoscopy for further evaluation of intermittent symptoms and weight loss (and for screening). Check anemia parameters for completeness. BRENNAN PERALES per primary. AKI ESTRADA Nov 26, 2019 13:57
[2019-11-26 15:00] VITALS: BP 135/53
--- NOTE | 2019-11-26 15:35 | NUR ---
SW following. Discussed with RN. Per Forrest Gan, pt's family agreeable to home health but does not have a preference of provider. Marianna Stinson RN meeting with pt. SW will continue to follow.
[2019-11-26] MEDS ORDERED: DIGOXIN IV 500 MCG/2 ML AMPUL. IV ONE (15:45)
[2019-11-26] MEDS ORDERED: DIGOXIN 125 MCG TABLET. PO ONE (16:30)
[2019-11-26] MEDS: ASPIRIN ENTERIC COATED 81 MG TABLET.DR. PO SCH (16:42)
[2019-11-26] MEDS ORDERED: ALBUTEROL SULFATE 2.5 MG/3 ML NEBU. NEB PRN (18:45)
[2019-11-26 19:00] VITALS: BP 128/37
[2019-11-26] MEDS ORDERED: FAMOTIDINE 20 MG TABLET. PO SCH (21:00)
[2019-11-26] MEDS: ATORVASTATIN CALCIUM 10 MG TABLET. PO SCH (22:14)
[2019-11-26] MEDS: LACTOBACILLUS RHAMNOSUS GG 1 CAPSULE. PO SCH (22:14)
[2019-11-26 23:00] VITALS: BP 132/36
[2019-11-27] MEDS: IV NORMAL SALINE 1000ML BAG 1,000 ML IV SCH ×2 (02:08→15:32)
[2019-11-27 03:00] VITALS: BP 138/52
[2019-11-27 07:00] VITALS: BP 142/44
[2019-11-27 07:53] LABS: BASO % 0 % (0-3); EOS # 0.1 x10^3/uL (0.0-0.7); EOS % 1 % (0-3); HEMATOCRIT 23.8 % (36.0-47.0); HEMOGLOBIN 7.7 g/dL (12.0-15.5); LYMPH # 0.6 x10^3/uL (1.0-4.8); LYMPH % 6 % (24-48); MEAN CORPUSCULAR HEMOGLOBIN 32 pg (25-35); MEAN CORPUSCULAR HGB CONC 32 g/dL (31-37); MEAN CORPUSCULAR VOLUME 100 fL (79-100); MONO # 0.4 x10^3/uL (0.0-1.1); MONO % 4 % (0-9); NEUT # 7.9 x10^3/uL (1.8-7.7); NEUT % 89 % (31-73); PLATELET COUNT 110 x10^3/uL (140-400); RED BLOOD COUNT 2.39 x10^6/uL (3.50-5.40); RED CELL DISTRIBUTION WIDTH 12.7 % (11.5-14.5); WHITE BLOOD COUNT 8.9 x10^3/uL (4.0-11.0)
[2019-11-27] MEDS: AZELASTINE NASAL SPRAY 30ML BOTTLE. NS SCH (07:56)
[2019-11-27] MEDS: FLUTICASONE 50MCG/NASAL SPRAY 16GM BOTTLE. NS SCH (07:56)
[2019-11-27] MEDS: FUROSEMIDE 20 MG TABLET PO SCH ×2 (07:57→09:00)
[2019-11-27] MEDS: DIGOXIN 125 MCG TABLET. PO SCH (08:01)
[2019-11-27] MEDS: LACTOBACILLUS RHAMNOSUS GG 1 CAPSULE. PO SCH (08:01)
[2019-11-27] MEDS: SERTRALINE 50 MG TABLET. PO SCH (08:01)
[2019-11-27] MEDS: HYDROcodone/APAP 5/325MG 1 TAB TABLET PO SCH (08:02)
[2019-11-27 08:05] LABS: CALCIUM 8.6 mg/dL (8.5-10.1); CREATININE 0.8 mg/dL (0.6-1.0); GFR 70.5; POTASSIUM 4.3 mmol/L (3.5-5.1)
[2019-11-27] MEDS: IPRATRPIUM/ALBUTEROL 0.5/2.5MG 3 ML NEBU. NEB SCH ×2 (08:06→11:48)
[2019-11-27] MEDS: ASPIRIN ENTERIC COATED 81 MG TABLET.DR. PO SCH (08:06)
[2019-11-27 08:46] LABS: CHOLESTEROL/HDL RATIO 2.9
--- NOTE | 2019-11-27 09:02 | CARD ---
MR#: [id number] Date of Study: 11/26/2019 Ordering Physician: MONICA GRIMM, Referring Physician: MONICA GRIMM, Tech: Tori Macias RDCS APPROVED REPORT EXAM: Two-dimensional and M-mode echocardiogram with Doppler and color Doppler. Other Information Quality : Good INDICATION Dyspnea Weakness 2D DIMENSIONS Left Atrium(2D)2.2 (1.6-4.0cm)IVSd0.9 (0.7-1.1cm) Aortic Root(2D)2.3 (2.0-3.7cm)LVDd4.4 (3.9-5.9cm) LVOT Diameter1.9 (1.8-2.4cm)PWd0.8 (0.7-1.1cm) LVDs3.0 (2.5-4.0cm)FS (%) 31.9 % SV53.2 mlLVEF(%)60.2 (>50%) Aortic Valve AoV Peak Jc.206.4cm/sAoV VTI36.0cm AO Peak GR.17.0mmHgLVOT Peak Jc.133.1cm/s AO Mean GR.8mmHgAVA (VMAX)1.80cm2 CARRILLO (VTI)1.90cm2 Mitral Valve MV E Bwdekdpp698.4cm/sMV DECEL BDJH167gf MV A Kmglcfpe387.3cm/sE/A Ratio1.3 Tricuspid Valve TR P. Dzixduyb364tu/sRAP VWKQPJZY3kyEa TR Peak Gr.43sfFnIPOA97mhQr Pulmonary Vein S1 Ulydovhs24.6cm/sD2 Sdkgreex59.6cm/s LEFT VENTRICLE The left ventricle is normal size. There is normal left ventricular wall thickness. The left ventricu lar systolic function is normal. The Ejection Fraction is 60-65%. There is normal LV segmental wall m otion. RIGHT VENTRICLE The right ventricle is normal size. The right ventricular systolic function is normal. ATRIA The left atrium size is normal. The right atrium size is normal. The interatrial septum is intact wit h no evidence for an atrial septal defect or patent foramen ovale as noted on 2-D or Doppler imaging. AORTIC VALVE The aortic valve is not well visualized. Doppler and Color Flow revealed no significant aortic regurg itation. There is no significant aortic valvular stenosis. MITRAL VALVE The mitral valve is normal in structure and function. There is no evidence of mitral valve prolapse. There is no mitral valve stenosis. Doppler and Color-flow revealed trace mitral regurgitation. TRICUSPID VALVE The tricuspid valve is normal in structure and function. Doppler and Color Flow revealed trace tricus pid regurgitation. There is moderate pulmonary hypertension. The PA pressure was estimated at 53 mmHg . There is no tricuspid valve stenosis. PULMONIC VALVE The pulmonic valve is not well visualized. Doppler and Color Flow revealed no pulmonic valvular regur gitation. There is no pulmonic valvular stenosis. GREAT VESSELS The aortic root is normal in size. The ascending aorta is not well seen. The IVC is normal in size an d collapses <50% with inspiration. PERICARDIAL EFFUSION There is no evidence of significant pericardial effusion. Critical Notification Critical Value: No <Conclusion> The left ventricular systolic function is normal. The Ejection Fraction is 60-65%. There is normal LV segmental wall motion. Trace mitral regurgitation. Trace tricuspid regurgitation. There is moderate pulmonary hypertension. The PA pressure was estimated at 53 mmHg. There is no evidence of significant pericardial effusion. Signed by : Alireza Dimas, Electronically Approved : 11/27/2019 09:02:06
--- NOTE | 2019-11-27 09:37 | NUR ---
RUDY following. Discussed with RN, possible home tomorrow (11/28/2019). Pt deciding about whether to have home health. RUDY will continue to follow. Addendum: 11/27/19 at 1342 by REGINA GRANT Family requesting transfer to another hospital. First choice [facility], second choice [facility]. RUDY contacted [facility] transfer line to initiate transfer. Clinicals faxed, physician phone number provided. SW awaiting acceptance decision. RUDY will continue to follow. Addendum: 11/27/19 at 1534 by REGINA GRANT SW received phone call from [facility] transfer line stating they have not received the clinicals. RUDY faxed again to number provided by [facility] (ph: [phone], f: [phone]). RUDY will continue to follow. Addendum: 11/27/19 at 1624 by REGINA MARQUIS SW RUDY verified with [facility] the clinicals were received. RUDY called to notify RN, pt is being transferred to ICU room 102. RUDY left voicemail for pt's daughter, Katarzyna (ph: [phone]) requesting call back. Unsure now if pt is stable for transfer, or if hospital transfer is still wanted by family. RUDY called [facility] transfer line to advise of pt moving to ICU and provided ICU phone number for notification of transfer acceptance. RUDY will continue to follow.
--- NOTE | 2019-11-27 10:00 | NUR ---
Spoke with family member, daughter Katarzyna, and updated on patient condition via telephone. Informed her of patient condition and asked questions as to what her baseline is. Informed daughter that patient is forgetful, and decreasing her O2 level, she's only been needing 2LNC yesterday, and today she was on 2.5. This Rn decreased it to not over oxygenate. Consulted pulmonary to see patient, and ensured breathing treatments are adequate. Ordered ABG.
[2019-11-27] MEDS: cefTRIAXone IV Push 1 GM VIAL. IVP SCH (10:25)
[2019-11-27 11:00] VITALS: BP 100/70
[2019-11-27 12:03] LABS: BASE EXCESS ABG 1 mmol/L (-3-3); HCO3 ABG 30 mmol/L (21-28); PO2 ABG 89 mmHg (65-108); SAT O2 ABG 96 % (92-99)
[2019-11-27 12:04] LABS: PCO2 ABG 71 mmHg (35-46)
[2019-11-27 12:05] LABS: FIO2 ABG 32
[2019-11-27] MEDS: ENOXAPARIN 40 MG/0.4 ML SYRINGE. SQ SCH (12:31)
--- NOTE | 2019-11-27 12:46 | PDOC ---
[employer] PROGRESS NOTE Date of Service DOS: DATE: 11/27/19 TIME: 12:40 Chief Complaint Chief Complaint Weakness Nausea, vomiting, diarrhea. History of Present Illness History of Present Illness 11/27/2019 Pt seen and examined. Discussed with RNSTEVEN. Discussed with daughter in the room and on the phone. Discussed with RN, patient working with physical therapy yesterday and today. Still with some suprapubic tenderness, improving. Patient still undecided about home with home health, will await physical therapy evaluation and recommendations. Can likely discharge tomorrow with oral antibiotics to complete treatment of complicated UTI for 7 days. Echocardiogram pending. Vitals/I&O Vitals/I&O: Vital Signs Date Time Temp Pulse Resp B/P (MAP) Pulse Ox O2 Delivery O2 Flow Rate FiO2 11/27/19 11:51 95 Nasal Cannula 3.0 11/27/19 11:00 97.9 99 18 100/70 (80) 97.9 I & O 11/26/19 11/26/19 11/27/19 15:00 23:00 07:00 Intake Total 250 ml 240 ml Output Total 725 ml 1150 ml Balance 250 ml -485 ml -1150 ml Physical Exam General: Alert, Oriented X3, Cooperative, No acute distress Heart: Normal S1, Normal S2, Other (2/6 systolic murmur ) Lungs: Clear Abdomen: Soft, No tenderness Extremities: No edema Skin: No breakdown, No significant lesion Labs Labs: Laboratory Tests Test 11/27/19 07:00 11/27/19 12:03 White Blood Count 8.9 x10^3/uL (4.0-11.0) Red Blood Count 2.39 x10^6/uL (3.50-5.40) Hemoglobin 7.7 g/dL (12.0-15.5) Hematocrit 23.8 % (36.0-47.0) Mean Corpuscular Volume 100 fL (79-100) Mean Corpuscular Hemoglobin 32 pg (25-35) Mean Corpuscular Hemoglobin Concent 32 g/dL (31-37) Red Cell Distribution Width 12.7 % (11.5-14.5) Platelet Count 110 x10^3/uL (140-400) Neutrophils (%) (Auto) 89 % (31-73) Lymphocytes (%) (Auto) 6 % (24-48) Monocytes (%) (Auto) 4 % (0-9) Eosinophils (%) (Auto) 1 % (0-3) Basophils (%) (Auto) 0 % (0-3) Neutrophils # (Auto) 7.9 x10^3/uL (1.8-7.7) Lymphocytes # (Auto) 0.6 x10^3/uL (1.0-4.8) Monocytes # (Auto) 0.4 x10^3/uL (0.0-1.1) Eosinophils # (Auto) 0.1 x10^3/uL (0.0-0.7) Basophils # (Auto) 0.0 x10^3/uL (0.0-0.2) Sodium Level 142 mmol/L (136-145) Potassium Level 4.3 mmol/L (3.5-5.1) Chloride Level 105 mmol/L (98-107) Carbon Dioxide Level 36 mmol/L (21-32) Anion Gap 1 (6-14) Blood Urea Nitrogen 11 mg/dL (7-20) Creatinine 0.8 mg/dL (0.6-1.0) Estimated GFR (Cockcroft-Gault) 70.5 Glucose Level 116 mg/dL (70-99) Calcium Level 8.6 mg/dL (8.5-10.1) Triglycerides Level 57 mg/dL (0-150) Cholesterol Level 143 mg/dL (0-200) LDL Cholesterol, Calculated 82 mg/dL (0-100) VLDL Cholesterol, Calculated 11 mg/dL (0-40) Non-HDL Cholesterol Calculated 93 mg/dL (0-129) HDL Cholesterol 50 mg/dL (40-60) Cholesterol/HDL Ratio 2.9 Thyroid Stimulating Hormone (TSH) 0.434 uIU/mL (0.358-3.74) O2 Saturation 96 % (92-99) Arterial Blood pH 7.23 (7.35-7.45) Arterial Blood pCO2 at Patient Temp 71 mmHg (35-46) Arterial Blood pO2 at Patient Temp 89 mmHg (65-108) Arterial Blood HCO3 30 mmol/L (21-28) Arterial Blood Base Excess 1 mmol/L (-3-3) FiO2 32 Review of Systems Review of Systems: Suprapubic pain. Generalized weakness. Assessment and Plan Assessmemt and Plan Assessment: UTI Anemia, Hx myelodysplastic syndrome. Generalized.weakness Plan: IV fluids. IV antibiotics. ABG. Chest XR. Consults pulmonology, hx COPD and pulm HTN on echo. Consult oncology, management of myelodysplastic syndrome. DVT prophylaxis. Home Meds. Comment Review of Relevant I have reviewed the following items augusto (where applicable) has been applied. Medications: Current Medications Medications (Trade) Dose Ordered Sig/Glenn Route PRN Reason Start Time Stop Time Status Last Admin Dose Admin Lactobacillus Rhamnosus (Culturelle) 1 cap BID PO 11/26/19 21:00 11/27/19 08:01 Famotidine (Pepcid) 20 mg QHS PO 11/26/19 21:00 11/26/19 22:14 Aspirin (Ecotrin) 81 mg [id number] PO 11/26/19 16:00 11/27/19 08:06 Digoxin (Lanoxin) 250 mcg ONCE ONCE PO 11/26/19 16:30 11/26/19 16:41 DC 11/26/19 16:42 Albuterol Sulfate (Ventolin Neb Soln) 2.5 mg PRN Q4HRS PRN NEB SHORTNESS OF BREATH 11/26/19 18:45 11/26/19 19:13 Albuterol/ Ipratropium (Duoneb) 3 ml RTQID NEB 11/27/19 13:00 11/27/19 11:48 Justifications for Admission Other Justification KIERAN SYLVESTER III DO Nov 27, 2019 12:46
--- NOTE | 2019-11-27 12:49 | CONS ---
DATE OF CONSULTATION: PULMONARY CONSULTATION ATTENDING PHYSICIAN: Dr. Kana South. REASON FOR CONSULTATION: Dyspnea. HISTORY OF PRESENT ILLNESS: The patient is an elderly patient in her 70s who smoked for 40+ years. She has history of chronic hypoxic respiratory failure. She also has a history of myelodysplastic syndrome and suprapubic catheter. She is on home oxygen at 3 liters. She was brought to the hospital with diarrhea, nausea and vomiting. The patient had a suprapubic catheter for several years. She had received chemo at . I was asked to see her for shortness of breath. The patient states she has exertional dyspnea. She has no significant cough, fever or chills. No chest pain, no lower extremity edema. An arterial blood gases obtained today showed a pH of 7.23, pCO2 of 71 and a pO2 of 89 with a bicarbonate of 30 on 32% FiO2. I had talked to the patient and the family along with RN and RT. At this time, I would recommend it should be placed on few hours of BiPAP. She is neurologically intact and does not give any signs of CO2 narcosis. Her CT of the chest was performed on 11/24, which was reviewed by me. There is evidence of emphysema and minimal atelectasis in the right lung. PAST MEDICAL HISTORY: COPD, oxygen dependent at 3 liters. Suspect severe. History of myelodysplastic syndrome. Status post chemo at . History of chronic suprapubic catheter, history of atrial fibrillation, hypertension CKD. PAST SURGICAL HISTORY: Suprapubic catheter placement. FAMILY HISTORY: Kidney disease. SOCIAL HISTORY: Smoked for 40 years before quitting. MEDICATIONS: All reviewed including bronchodilator, DuoNeb, Pulmicort. She is on Lovenox for DVT prophylaxis along with antibiotics. REVIEW OF SYSTEMS: Twelve-point system obtained. Pertinent positives discussed in my history of present illness, otherwise noncontributory. All systems that were negative were reviewed as well. FAMILY HISTORY: Noncontributory to lungs. PHYSICAL EXAMINATION: VITAL SIGNS: Reviewed. Pulse ox 95% on 3 liters, afebrile. NECK: Supple. LUNGS: With diminished breath sounds, no wheezing. CARDIOVASCULAR: With a regular rate. ABDOMEN: Soft. EXTREMITIES: With no pitting edema. LABORATORY DATA: Reviewed. ABGs as discussed in my history of present illness. Her coronavirus was negative. BUN and creatinine normal. White cell count 8.9, hemoglobin 7.7 and platelets are 110. IMPRESSION: 1. Acute on chronic hypercapnic respiratory failure in a patient who likely has end-stage chronic obstructive pulmonary disease. Hypercapnia is likely contributed by hyperoxia as well as use of benzos and narcotics. 2. No significant consolidation or pneumonia seen on the recent CT chest. 3. The patient with chronic hypoxic respiratory failure, on home oxygen at 3 liters. A pO2, currently is 89 on 3 liters. We should limit the amount of FiO2 to keep saturation 90-92%. RECOMMENDATIONS: 1. I have discussed with the patient and the entire family. At this time, I have recommended we should use BiPAP for few hours and follow ABGs. The patient was reluctant with BiPAP in the past, but she is agreeable to use it. 2. Avoid hyperoxia. Keep saturation 90-92%. 3. Discontinue fentanyl and reduced the dose of Xanax. 4. Minimize the use of oral hydrocodone. 5. Continue present bronchodilators with DuoNeb and Pulmicort. 6. DVT prophylaxis. 7. We will follow along with you. 8. d/w Dr Wallace and RN KIT CRAWFORD MD DR: JOSEFINA/shruthi JOB#: [id number] / [id number] QUIN
--- NOTE | 2019-11-27 12:57 | PDOC ---
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 On BiPAP) Vitals Vitals Vital Signs Date Time Temp Pulse Resp B/P (MAP) Pulse Ox O2 Delivery O2 Flow Rate FiO2 11/27/19 12:40 94 BiPAP/CPAP 11/27/19 11:51 3.0 11/27/19 11:00 97.9 99 18 100/70 (80) 97.9 Weight Weight [ ] Input and Output Intake and Output Intake and Output 11/27/19 07:00 Intake Total 490 ml Output Total 1875 ml Balance -1385 ml Intake Oral 490 ml Output Urine Total 1875 ml # Voids 2 # Bowel Movements 1 Laboratory Labs Laboratory Tests Test 11/27/19 07:00 11/27/19 12:03 White Blood Count 8.9 x10^3/uL (4.0-11.0) Red Blood Count 2.39 x10^6/uL (3.50-5.40) Hemoglobin 7.7 g/dL (12.0-15.5) Hematocrit 23.8 % (36.0-47.0) Mean Corpuscular Volume 100 fL (79-100) Mean Corpuscular Hemoglobin 32 pg (25-35) Mean Corpuscular Hemoglobin Concent 32 g/dL (31-37) Red Cell Distribution Width 12.7 % (11.5-14.5) Platelet Count 110 x10^3/uL (140-400) Neutrophils (%) (Auto) 89 % (31-73) Lymphocytes (%) (Auto) 6 % (24-48) Monocytes (%) (Auto) 4 % (0-9) Eosinophils (%) (Auto) 1 % (0-3) Basophils (%) (Auto) 0 % (0-3) Neutrophils # (Auto) 7.9 x10^3/uL (1.8-7.7) Lymphocytes # (Auto) 0.6 x10^3/uL (1.0-4.8) Monocytes # (Auto) 0.4 x10^3/uL (0.0-1.1) Eosinophils # (Auto) 0.1 x10^3/uL (0.0-0.7) Basophils # (Auto) 0.0 x10^3/uL (0.0-0.2) Sodium Level 142 mmol/L (136-145) Potassium Level 4.3 mmol/L (3.5-5.1) Chloride Level 105 mmol/L (98-107) Carbon Dioxide Level 36 mmol/L (21-32) Anion Gap 1 (6-14) Blood Urea Nitrogen 11 mg/dL (7-20) Creatinine 0.8 mg/dL (0.6-1.0) Estimated GFR (Cockcroft-Gault) 70.5 Glucose Level 116 mg/dL (70-99) Calcium Level 8.6 mg/dL (8.5-10.1) Triglycerides Level 57 mg/dL (0-150) Cholesterol Level 143 mg/dL (0-200) LDL Cholesterol, Calculated 82 mg/dL (0-100) VLDL Cholesterol, Calculated 11 mg/dL (0-40) Non-HDL Cholesterol Calculated 93 mg/dL (0-129) HDL Cholesterol 50 mg/dL (40-60) Cholesterol/HDL Ratio 2.9 Thyroid Stimulating Hormone (TSH) 0.434 uIU/mL (0.358-3.74) O2 Saturation 96 % (92-99) Arterial Blood pH 7.23 (7.35-7.45) Arterial Blood pCO2 at Patient Temp 71 mmHg (35-46) Arterial Blood pO2 at Patient Temp 89 mmHg (65-108) Arterial Blood HCO3 30 mmol/L (21-28) Arterial Blood Base Excess 1 mmol/L (-3-3) FiO2 32 Microbiology Micro Microbiology 11/25/19 Urine Culture - Final, Complete Physical Exam HEENT: Neck Supple W Full Motion Chest: Symmetric LUNGS: Other (diminished; on BiPAP) Heart: RRR (heart tones regular. Not on tele) Abdomen: Soft N/T Extremities: No Edema Neurology: alert, follow commands, other (forgetful) Assessment Assessment 1. Abdominal pain, nausea/vomiting; improved 2 . PAFIB; on digoxin for rate control. Heart tones regular. Not on tele. EKG with SR. Echo with preserved LV systolic function 3. Acute on chronic respiratory failure; more SOA today. On BiPAP. as per pulm 4. Hypertension; controlled 5. Anemia, iron deficient; hgb 7.7. No obvious bleeding 6. CKD; stable 7. UTI with chronic suprapubic catheter 8. H/o myelodysplastic syndrome Recommendations ASA therapy. Monitor hgb, PLTs Digoxin for rate control. Will need cardiac followup which was discussed with family. 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 Consider outpatient event monitor and ischemic eval as outpatient; patient/family given card if they would like to f/u with us. Otherwise, needs to establish care with [facility] coach driver. Ongoing antibiotic therapy for UTI Supportive care Justicifation of Admission Dx: Justifications for Admission: Justification of Admission Dx: Yes GERI DUFFY MD 11/28/19 0721: CARDIO Progress Notes Assessment Assessment Patient seen and examined 11/27/19. Agree with [facility]OCIATE's assessment and plan. Abd pain/N/V improved PAF p-resently in SR 2D echo showed normal LVF. Plan event monitor and ischemic eval as outpatient DAWN CUEVAS APRN Nov 27, 2019 12:57 GERI DUFFY MD Nov 28, 2019 07:21
[2019-11-27] MEDS ORDERED: HYDROcodone/APAP 5/325MG 1 TAB TABLET PO SCH (13:00)
--- NOTE | 2019-11-27 13:07 | PDOC ---
G I PROGRESS NOTE Reason for Follow-up Chronic illness anemia/n/v Subjective Pain/n/v/ improved Physical Exam Lungs hubert rhonchi/decerased BS CV S1 S2 ABD +BS, soft, nontender Review of Relevant I have reviewed the following items augusto (where applicable) has been applied. Labs Laboratory Tests Test 11/26/19 03:25 11/27/19 07:00 11/27/19 12:03 White Blood Count 11.5 x10^3/uL (4.0-11.0) 8.9 x10^3/uL (4.0-11.0) Red Blood Count 2.46 x10^6/uL (3.50-5.70) 2.39 x10^6/uL (3.50-5.40) Hemoglobin 7.7 g/dL (12.0-15.5) 7.7 g/dL (12.0-15.5) Hematocrit 25.0 % (36.0-47.0) 23.8 % (36.0-47.0) Mean Corpuscular Volume 101 fL (79-100) 100 fL (79-100) Mean Corpuscular Hemoglobin 31 pg (25-35) 32 pg (25-35) Mean Corpuscular Hemoglobin Concent 31 g/dL (31-37) 32 g/dL (31-37) Red Cell Distribution Width 12.8 % (11.5-14.5) 12.7 % (11.5-14.5) Platelet Count 135 x10^3/uL (140-400) 110 x10^3/uL (140-400) Neutrophils (%) (Auto) 84 % (31-73) 89 % (31-73) Lymphocytes (%) (Auto) 10 % (24-48) 6 % (24-48) Monocytes (%) (Auto) 5 % (0-9) 4 % (0-9) Eosinophils (%) (Auto) 1 % (0-3) 1 % (0-3) Basophils (%) (Auto) 0 % (0-3) 0 % (0-3) Neutrophils # (Auto) 9.6 x10^3/uL (1.8-7.7) 7.9 x10^3/uL (1.8-7.7) Lymphocytes # (Auto) 1.2 x10^3/uL (1.0-4.8) 0.6 x10^3/uL (1.0-4.8) Monocytes # (Auto) 0.6 x10^3/uL (0.0-1.1) 0.4 x10^3/uL (0.0-1.1) Eosinophils # (Auto) 0.1 x10^3/uL (0.0-0.7) 0.1 x10^3/uL (0.0-0.7) Basophils # (Auto) 0.0 x10^3/uL (0.0-0.2) 0.0 x10^3/uL (0.0-0.2) Absolute Reticulocyte Count 0.037 x10^6/uL (0.020-0.120) Percent Reticulocyte Count 1.5 % (0.5-2.3) Immature Reticulocyte Fraction 0.33 (0.20-0.60) Sodium Level 143 mmol/L (136-145) 142 mmol/L (136-145) Potassium Level 4.4 mmol/L (3.5-5.1) 4.3 mmol/L (3.5-5.1) Chloride Level 107 mmol/L (98-107) 105 mmol/L (98-107) Carbon Dioxide Level 38 mmol/L (21-32) 36 mmol/L (21-32) Anion Gap (6-14) 1 (6-14) Blood Urea Nitrogen 18 mg/dL (7-20) 11 mg/dL (7-20) Creatinine 0.9 mg/dL (0.6-1.0) 0.8 mg/dL (0.6-1.0) Estimated GFR (Cockcroft-Gault) 61.5 70.5 Glucose Level 105 mg/dL (70-99) 116 mg/dL (70-99) Calcium Level 8.4 mg/dL (8.5-10.1) 8.6 mg/dL (8.5-10.1) Iron Level 16 ug/dL (50-170) Total Iron Binding Capacity 248 ug/dL (250-450) Iron Saturation 6 % (15-34) Vitamin B12 Level 974 pg/mL (247-911) Digoxin Level 0.5 ng/mL (0.9-2.0) Digoxin Last Dose Date Digoxin Last Dose Time 0900 Triglycerides Level 57 mg/dL (0-150) Cholesterol Level 143 mg/dL (0-200) LDL Cholesterol, Calculated 82 mg/dL (0-100) VLDL Cholesterol, Calculated 11 mg/dL (0-40) Non-HDL Cholesterol Calculated 93 mg/dL (0-129) HDL Cholesterol 50 mg/dL (40-60) Cholesterol/HDL Ratio 2.9 Thyroid Stimulating Hormone (TSH) 0.434 uIU/mL (0.358-3.74) O2 Saturation 96 % (92-99) Arterial Blood pH 7.23 (7.35-7.45) Arterial Blood pCO2 at Patient Temp 71 mmHg (35-46) Arterial Blood pO2 at Patient Temp 89 mmHg (65-108) Arterial Blood HCO3 30 mmol/L (21-28) Arterial Blood Base Excess 1 mmol/L (-3-3) FiO2 32 Laboratory Tests Test 11/27/19 07:00 11/27/19 12:03 White Blood Count 8.9 x10^3/uL (4.0-11.0) Red Blood Count 2.39 x10^6/uL (3.50-5.40) Hemoglobin 7.7 g/dL (12.0-15.5) Hematocrit 23.8 % (36.0-47.0) Mean Corpuscular Volume 100 fL (79-100) Mean Corpuscular Hemoglobin 32 pg (25-35) Mean Corpuscular Hemoglobin Concent 32 g/dL (31-37) Red Cell Distribution Width 12.7 % (11.5-14.5) Platelet Count 110 x10^3/uL (140-400) Neutrophils (%) (Auto) 89 % (31-73) Lymphocytes (%) (Auto) 6 % (24-48) Monocytes (%) (Auto) 4 % (0-9) Eosinophils (%) (Auto) 1 % (0-3) Basophils (%) (Auto) 0 % (0-3) Neutrophils # (Auto) 7.9 x10^3/uL (1.8-7.7) Lymphocytes # (Auto) 0.6 x10^3/uL (1.0-4.8) Monocytes # (Auto) 0.4 x10^3/uL (0.0-1.1) Eosinophils # (Auto) 0.1 x10^3/uL (0.0-0.7) Basophils # (Auto) 0.0 x10^3/uL (0.0-0.2) Sodium Level 142 mmol/L (136-145) Potassium Level 4.3 mmol/L (3.5-5.1) Chloride Level 105 mmol/L (98-107) Carbon Dioxide Level 36 mmol/L (21-32) Anion Gap 1 (6-14) Blood Urea Nitrogen 11 mg/dL (7-20) Creatinine 0.8 mg/dL (0.6-1.0) Estimated GFR (Cockcroft-Gault) 70.5 Glucose Level 116 mg/dL (70-99) Calcium Level 8.6 mg/dL (8.5-10.1) Triglycerides Level 57 mg/dL (0-150) Cholesterol Level 143 mg/dL (0-200) LDL Cholesterol, Calculated 82 mg/dL (0-100) VLDL Cholesterol, Calculated 11 mg/dL (0-40) Non-HDL Cholesterol Calculated 93 mg/dL (0-129) HDL Cholesterol 50 mg/dL (40-60) Cholesterol/HDL Ratio 2.9 Thyroid Stimulating Hormone (TSH) 0.434 uIU/mL (0.358-3.74) O2 Saturation 96 % (92-99) Arterial Blood pH 7.23 (7.35-7.45) Arterial Blood pCO2 at Patient Temp 71 mmHg (35-46) Arterial Blood pO2 at Patient Temp 89 mmHg (65-108) Arterial Blood HCO3 30 mmol/L (21-28) Arterial Blood Base Excess 1 mmol/L (-3-3) FiO2 32 Microbiology 11/25/19 Urine Culture - Final, Complete Medications Current Medications Ondansetron HCl (Zofran) 4 mg 1X ONCE IVP Last administered on 11/25/19at 03:51; Start 11/25/19 at 04:00; Stop 11/25/19 at 04:01; Status DC Famotidine (Pepcid Vial) 20 mg 1X ONCE IVP Last administered on 11/25/19at 03:51; Start 11/25/19 at 04:00; Stop 11/25/19 at 04:01; Status DC Sodium Chloride 1,000 ml @ 1,000 mls/hr 1X ONCE IV Last administered on at 03:51; Start 11/25/19 at 04:00; Stop 11/25/19 at 04:59; Status DC Dicyclomine HCl (Bentyl) 20 mg 1X ONCE IM Last administered on 11/25/19at 03:51; Start 11/25/19 at 04:00; Stop 11/25/19 at 04:01; Status DC Ceftriaxone Sodium (Rocephin) 1 gm 1X ONCE IVP Last administered on 11/25/19at 04:58; Start 11/25/19 at 04:30; Stop 11/25/19 at 04:31; Status DC Ondansetron HCl (Zofran) 4 mg PRN Q8HRS PRN IV NAUSEA/VOMITING 1ST CHOICE; Start 11/25/19 at 05:00; Stop 11/26/19 at 04:59; Status DC Fentanyl Citrate (Fentanyl 2ml Vial) 50 mcg PRN Q2HRS PRN IV SEVERE PAIN 7-10 Last administered on 11/26/19at 05:55; Start 11/25/19 at 05:00; Stop 11/27/19 at 12:25; Status DC Fentanyl Citrate (Fentanyl 2ml Vial) 50 mcg 1X ONCE IV ; Start 11/25/19 at 05:15; Stop 11/25/19 at 05:16; Status DC Enoxaparin Sodium (Lovenox 30mg Syringe) 30 mg Q24H SQ Last administered on 11/25/19at 12:12; Start 11/25/19 at 11:00; Stop 11/26/19 at 11:30; Status DC Ceftriaxone Sodium (Rocephin) 1 gm Q24H IVP Last administered on 11/27/19at 10:25; Start 11/26/19 at 10:00; Stop 12/06/19 at 10:00 Sodium Chloride 1,000 ml @ 75 mls/hr [id number] IV Last administered on 11/27/19at 02:08; Start 11/25/19 at 10:00 Alprazolam (Xanax) 0.5 mg PRN Q6HRS PRN PO ANXIETY / AGITATION Last administered on 11/26/19at 05:54; Start 11/25/19 at 13:00; Stop 11/27/19 at 12:25; Status DC Cyclobenzaprine HCl (Flexeril) 10 mg PRN TID PRN PO MUSCLE SPASMS; Start 11/25/19 at 13:00 Furosemide (Lasix) 20 mg DAILY PO Last administered on 11/26/19at 10:01; Start 11/26/19 at 09:00 Acetaminophen/ Hydrocodone Bitart (Lortab 5/325) 1 tab QID PO Last administered on 11/27/19at 08:02; Start 11/25/19 at 13:00; Stop 11/27/19 at 12:49; Status DC Sertraline HCl (Zoloft) 50 mg DAILY PO Last administered on 11/27/19at 08:01; Start 11/26/19 at 09:00 Non-Formulary Medication (Azelastine/ Fluticasone (Dymista Nasal [place])) 1 spray BID NS ; Start 11/25/19 at 21:00; Status UNV Digoxin (Lanoxin) 125 mcg DAILY PO Last administered on 11/27/19at 08:01; Start 11/26/19 at 09:00 Non-Formulary Medication (Ipratropium/ Albuterol Sulfate (Combivent Respimat Inhal)) 2 inh QID IH ; Start 11/25/19 at 13:00; Status UNV Atorvastatin Calcium (Lipitor) 10 mg QHS PO Last administered on 11/26/19at 22:14; Start 11/25/19 at 21:00 Albuterol/ Ipratropium (Duoneb) 3 ml RTQID NEB ; Start 11/25/19 at 16:00; Stop 11/25/19 at 19:29; Status DC Azelastine HCl (Astelin) 1 spray BID NS Last administered on 11/27/19at 07:56; Start 11/25/19 at 21:00 Fluticasone Propionate (Flonase) 1 spray BID NS Last administered on 11/27/19at 07:56; Start 11/25/19 at 21:00 Sodium Chloride 500 ml @ 500 mls/hr 1X ONCE IV Last administered on 11/25/19at 15:45; Start 11/25/19 at 15:45; Stop 11/25/19 at 16:44; Status DC Albuterol/ Ipratropium (Duoneb) 3 ml PRN QID PRN NEB WHEEZING; Start 11/25/19 at 19:30; Stop 11/27/19 at 07:56; Status DC Enoxaparin Sodium (Lovenox 40mg Syringe) 40 mg Q24H SQ Last administered on 11/27/19at 12:31; Start 11/26/19 at 12:00 Lactobacillus Rhamnosus (Culturelle) 1 cap BID PO Last administered on 11/27/19at 08:01; Start 11/26/19 at 21:00 Famotidine (Pepcid) 20 mg QHS PO Last administered on 11/26/19at 22:14; Start 11/26/19 at 21:00 Digoxin (Lanoxin) 250 mcg 1X ONCE IV ; Start 11/26/19 at 15:45; Stop 11/26/19 at 15:46; Status Cancel Aspirin (Ecotrin) 81 mg [id number] PO Last administered on 11/27/19at 08:06; Start 11/26/19 at 16:00 Digoxin (Lanoxin) 250 mcg ONCE ONCE PO Last administered on 11/26/19at 16:42; Start 11/26/19 at 16:30; Stop 11/26/19 at 16:41; Status DC Albuterol Sulfate (Ventolin Neb Soln) 2.5 mg PRN Q4HRS PRN NEB SHORTNESS OF BREATH Last administered on 11/26/19at 19:13; Start 11/26/19 at 18:45 Albuterol/ Ipratropium (Duoneb) 3 ml RTQID NEB Last administered on 11/27/19at 11:48; Start 11/27/19 at 13:00 Budesonide (Pulmicort) 0.5 mg RTBID NEB ; Start 11/27/19 at 20:00 Acetaminophen/ Hydrocodone Bitart (Lortab 5/325) 1 tab BID PO ; Start 11/27/19 at 13:00 Active Scripts Active Reported Dymista Nasal [place] (Azelastine/Fluticasone) 23 Gm [place].pump 1 [place] NS BID Alprazolam 0.5 Mg Tablet 0.5 Mg PO PRN Q6HRS PRN Hydrocodone-Apap 5-325 (Hydrocodone Bit/Acetaminophen) 1 Each Tablet 1 Tab PO QID Cyclobenzaprine Hcl 10 Mg Tablet 10 Mg PO TID Sertraline Hcl 50 Mg Tablet 50 Mg PO DAILY Digoxin 0.125 Mg/2.5 Ml Solution 0.125 Mg PO DAILY Combivent Respimat Inhal (Ipratropium/Albuterol Sulfate) 4 Gm Aer.w.adap 2 Inh IH QID Albuterol Sulfate Conc Neb Soln (Albuterol Sulfate) 2.5 Mg/0.5 Ml Vial.neb 2.5 Mg NEB Zantac 75 (Ranitidine Hcl) 75 Mg Tablet 75 Mg PO BID Aspir 81 (Aspirin) 81 Mg Tablet.dr 81 Mg PO Lovastatin 40 Mg Tablet 40 Mg PO HS Lisinopril 20 Mg Tablet 1 Tab PO DAILY Lasix (Furosemide) 20 Mg Tablet 20 Mg PO DAILY Vitals/I & O Vital Sign - Last 24 Hours 11/26/19 11/26/19 11/26/19 11/26/19 14:04 15:00 16:42 16:43 Temp 98.1 98.1 Pulse 93 93 Resp 16 B/P (MAP) 135/53 (80) 135/53 Pulse Ox 99 95 95 O2 Delivery Nasal Cannula Nasal Cannula Nasal Cannula O2 Flow Rate 2.0 2.0 2.0 11/26/19 11/26/19 11/26/19 11/26/19 19:00 19:13 20:00 23:00 Temp 98.2 98.3 98.2 98.3 Pulse 96 92 Resp 18 18 B/P (MAP) 128/37 (67) 132/36 (68) Pulse Ox 96 99 94 O2 Delivery Nasal Cannula Nasal Cannula Nasal Cannula Nasal Cannula O2 Flow Rate 2.0 3.0 3.0 2.0 11/27/19 11/27/19 11/27/19 11/27/19 03:00 07:00 08:00 08:01 Temp 98.6 97.9 98.6 97.9 Pulse 101 96 101 Resp 18 18 B/P (MAP) 138/52 (80) 142/44 (76) 138/52 Pulse Ox 95 96 O2 Delivery Nasal Cannula Room Air Nasal Cannula O2 Flow Rate 2.0 2.5 11/27/19 11/27/19 11/27/19 11/27/19 08:02 08:06 09:00 11:00 Temp 97.9 97.9 Pulse 99 Resp 18 B/P (MAP) 100/70 (80) Pulse Ox 95 98 95 95 O2 Delivery Nasal Cannula Nasal Cannula Nasal Cannula Nasal Cannula O2 Flow Rate 3.0 3.5 3.0 3.0 11/27/19 11/27/19 11:51 12:40 Pulse Ox 95 94 O2 Delivery Nasal Cannula BiPAP/CPAP O2 Flow Rate 3.0 Intake and Output 11/26/19 11/26/19 11/27/19 15:00 23:00 07:00 Intake Total 250 ml 240 ml Output Total 725 ml 1150 ml Balance 250 ml -485 ml -1150 ml Problem List Chroinc illness anemia- Hg stable, abd pain/n/v resolved, await transfer per patient/family request Justicifation of Admission Dx: Justifications for Admission: Justification of Admission Dx: Yes CHI LEVINE MD Nov 27, 2019 13:07
--- NOTE | 2019-11-27 13:40 | NUR ---
Family members in room, verbally rude and told me to stop, she would talk to Dr. Wallace directly. This RN was not needed. Pt stated she needed to go to the bathroom, went to assist patient. Family members firmly shut door. Waited outside the room with RT. Assisted RT in applying bipap mask and moving items in room. Requested family members to step out long enough to get her Bipap situated. Pt appears anxious. More anxious since family arrived than she has been. Pt is on Bipap and aggitated.
[2019-11-27 14:52] LABS: BASE EXCESS ABG 4 mmol/L (-3-3); HCO3 ABG 32 mmol/L (21-28)
[2019-11-27 15:00] VITALS: BP 94/49
[2019-11-27] MEDS ORDERED: ALPRAZolam 0.25 MG TABLET PO PRN (15:00)
--- NOTE | 2019-11-27 15:17 | PDOC2 ---
CONSULT Date of Consult Date of Consult DATE: 11/27/19 TIME: 14:55 Reason for Consult Reason for Consult: Myelodysplastic syndrome Referring Physician Referring Physician: Dr. Wallace Identification/Chief Complaint Chief Complaint Generalized weakness Source Source: Chart review, Patient History of Present Illness Reason for Visit: Erin Armstrong is a 74-year-old female who has been admitted for further evaluation and management of generalized weakness. Patient's medical history is significant for myelodysplastic syndrome as well as chronic hypoxic respiratory failure secondary to myelodysplastic syndrome. She was brought to the hospital with nausea, vomiting and diarrhea. Her evaluation during her hospital stay showed acute on chronic hypoxic hypercapnic respiratory failure. She has been s een by Dr. Franco in consultation and noninvasive positive pressure ventilation with BiPAP was recommended. She was on BiPAP at the time of my evaluation and was therefore unable to participate in an interview. She was accompanied by her daughters at bedside. 1 of her daughters is an RN. Per her daughter, she was diagnosed with myelodysplastic syndrome approximately 4 years ago. She had previously followed with Dr. Marisabel Veronica. She had subsequently transferred care to Dr. Tommie Rosa at . She had been seen there 1 or 2 times and had received erythropoiesis stimulating agent therapy due to anemia secondary to myelodysplastic syndrome. Per her daughter, the patient was lost to follow-up as she did not want to go to so many doctors appointments. Hematology consultation has been sought due to her history of MDS. Past Medical History Cardiovascular: AFIB, HTN Pulmonary: COPD Heme/Onc: Other (myelodysplastic syndrome) Renal/: Chronic renal insuff, Other (suprapubic catheter) Past Surgical History Past Surgical History: Cholecystectomy, Other (supra pubic catheter placement ) Family History Family History: Heart Disease (mother ) Social History Quit ALCOHOL: none Drugs: None Lives: Alone Current Medications Current Medications Current Medications Ondansetron HCl (Zofran) 4 mg 1X ONCE IVP Last administered on 11/25/19at 03:51 ; Start 11/25/19 at 04:00; Stop 11/25/19 at 04:01; Status DC Famotidine (Pepcid Vial) 20 mg 1X ONCE IVP Last administered on 11/25/19at 03:51; Start 11/25/19 at 04:00; Stop 11/25/19 at 04:01; Status DC Sodium Chloride 1,000 ml @ 1,000 mls/hr 1X ONCE IV Last administered on 11/25/19at 03:51; Start 11/25/19 at 04:00; Stop 11/25/19 at 04:59; Status DC Dicyclomine HCl (Bentyl) 20 mg 1X ONCE IM Last administered on 11/25/19at 03:51; Start 11/25/19 at 04:00; Stop 11/25/19 at 04:01; Status DC Ceftriaxone Sodium (Rocephin) 1 gm 1X ONCE IVP Last administered on 11/25/19at 04:58; Start 11/25/19 at 04:30; Stop 11/25/19 at 04:31; Status DC Ondansetron HCl (Zofran) 4 mg PRN Q8HRS PRN IV NAUSEA/VOMITING 1ST CHOICE; Start 11/25/19 at 05:00; Stop 11/26/19 at 04:59; Status DC Fentanyl Citrate (Fentanyl 2ml Vial) 50 mcg PRN Q2HRS PRN IV SEVERE PAIN 7-10 Last administered on 11/26/19at 05:55; Start 11/25/19 at 05:00; Stop 11/27/19 at 12:25; Status DC Fentanyl Citrate (Fentanyl 2ml Vial) 50 mcg 1X ONCE IV ; Start 11/25/19 at 05:15; Stop 11/25/19 at 05:16; Status DC Enoxaparin Sodium (Lovenox 30mg Syringe) 30 mg Q24H SQ Last administered on 11/25/19at 12:12; Start 11/25/19 at 11:00; Stop 11/26/19 at 11:30; Status DC Ceftriaxone Sodium (Rocephin) 1 gm Q24H IVP Last administered on 11/27/19at 10:25; Start 11/26/19 at 10:00; Stop 12/06/19 at 10:00 Sodium Chloride 1,000 ml @ 75 mls/hr [id number] IV Last administered on 11/27/19at 02:08; Start 11/25/19 at 10:00 Alprazolam (Xanax) 0.5 mg PRN Q6HRS PRN PO ANXIETY / AGITATION Last administered on 11/26/19at 05:54; Start 11/25/19 at 13:00; Stop 11/27/19 at 12:25; Status DC Cyclobenzaprine HCl (Flexeril) 10 mg PRN TID PRN PO MUSCLE SPASMS; Start 11/25/19 at 13:00 Furosemide (Lasix) 20 mg DAILY PO Last administered on 11/26/19at 10:01; Start 11/26/19 at 09:00 Acetaminophen/ Hydrocodone Bitart (Lortab 5/325) 1 tab QID PO Last administered on 11/27/19at 08:02; Start 11/25/19 at 13:00; Stop 11/27/19 at 12:49; Status DC Sertraline HCl (Zoloft) 50 mg DAILY PO Last administered on 11/27/19at 08:01; Start 11/26/19 at 09:00 Non-Formulary Medication (Azelastine/ Fluticasone (Dymista Nasal [place])) 1 spray BID NS ; Start 11/25/19 at 21:00; Status UNV Digoxin (Lanoxin) 125 mcg DAILY PO Last administered on 11/27/19at 08:01; Start 11/26/19 at 09:00 Non-Formulary Medication (Ipratropium/ Albuterol Sulfate (Combivent Respimat Inhal)) 2 inh QID IH ; Start 11/25/19 at 13:00; Status UNV Atorvastatin Calcium (Lipitor) 10 mg QHS PO Last administered on 11/26/19at 22:14; Start 11/25/19 at 21:00 Albuterol/ Ipratropium (Duoneb) 3 ml RTQID NEB ; Start 11/25/19 at 16:00; Stop 11/25/19 at 19:29; Status DC Azelastine HCl (Astelin) 1 spray BID NS Last administered on 11/27/19at 07:56; Start 11/25/19 at 21:00 Fluticasone Propionate (Flonase) 1 spray BID NS Last administered on 11/27/19at 07:56; Start 11/25/19 at 21:00 Sodium Chloride 500 ml @ 500 mls/hr 1X ONCE IV Last administered on 11/25/19at 15:45; Start 11/25/19 at 15:45; Stop 11/25/19 at 16:44; Status DC Albuterol/ Ipratropium (Duoneb) 3 ml PRN QID PRN NEB WHEEZING; Start 11/25/19 at 19:30; Stop 11/27/19 at 07:56; Status DC Enoxaparin Sodium (Lovenox 40mg Syringe) 40 mg Q24H SQ Last administered on 11/27/19at 12:31; Start 11/26/19 at 12:00 Lactobacillus Rhamnosus (Culturelle) 1 cap BID PO Last administered on 11/27/19at 08:01; Start 11/26/19 at 21:00 Famotidine (Pepcid) 20 mg QHS PO Last administered on 11/26/19at 22:14; Start 11/26/19 at 21:00 Digoxin (Lanoxin) 250 mcg 1X ONCE IV ; Start 11/26/19 at 15:45; Stop 11/26/19 at 15:46; Status Cancel Aspirin (Ecotrin) 81 mg [id number] PO Last administered on 11/27/19at 08:06; Start 11/26/19 at 16:00 Digoxin (Lanoxin) 250 mcg ONCE ONCE PO Last administered on 11/26/19at 16:42; Start 11/26/19 at 16:30; Stop 11/26/19 at 16:41; Status DC Albuterol Sulfate (Ventolin Neb Soln) 2.5 mg PRN Q4HRS PRN NEB SHORTNESS OF BREATH Last administered on 11/26/19at 19:13; Start 11/26/19 at 18:45 Albuterol/ Ipratropium (Duoneb) 3 ml RTQID NEB Last administered on 11/27/19at 11:48; Start 11/27/19 at 13:00 Budesonide (Pulmicort) 0.5 mg RTBID NEB ; Start 11/27/19 at 20:00 Acetaminophen/ Hydrocodone Bitart (Lortab 5/325) 1 tab BID PO ; Start 11/27/19 at 13:00 Alprazolam (Xanax) 0.25 mg PRN BID PRN PO ANXIETY / AGITATION; Start 11/27/19 at 15:00 Active Scripts Active Reported Dymista Nasal [place] (Azelastine/Fluticasone) 23 Gm [place].pump 1 [place] NS BID Alprazolam 0.5 Mg Tablet 0.5 Mg PO PRN Q6HRS PRN Hydrocodone-Apap 5-325 (Hydrocodone Bit/Acetaminophen) 1 Each Tablet 1 Tab PO QID Cyclobenzaprine Hcl 10 Mg Tablet 10 Mg PO TID Sertraline Hcl 50 Mg Tablet 50 Mg PO DAILY Digoxin 0.125 Mg/2.5 Ml Solution 0.125 Mg PO DAILY Combivent Respimat Inhal (Ipratropium/Albuterol Sulfate) 4 Gm Aer.w.adap 2 Inh IH QID Albuterol Sulfate Conc Neb Soln (Albuterol Sulfate) 2.5 Mg/0.5 Ml Vial.neb 2.5 Mg NEB Zantac 75 (Ranitidine Hcl) 75 Mg Tablet 75 Mg PO BID Aspir 81 (Aspirin) 81 Mg Tablet.dr 81 Mg PO Lovastatin 40 Mg Tablet 40 Mg PO HS Lisinopril 20 Mg Tablet 1 Tab PO DAILY Lasix (Furosemide) 20 Mg Tablet 20 Mg PO DAILY Allergies Allergies: Coded Allergies: Sulfa (Sulfonamide Antibiotics) (Verified Allergy, Intermediate, HIVES, 11/26/19) ROS Review of System Review of systems was limited due to the patient's use of BiPAP at the time of the exam. She was able to provide a limited review of systems and denied pain anywhere new, bleeding, hematemesis, melena, hematochezia Physical Exam General: Alert, mild distress HEENT: Atraumatic Lungs: Other (Decreased air entry bilaterally) Heart: Normal S1, Normal S2 Abdomen: Normal bowel sounds, Soft Extremities: No clubbing Neuro: Other (No grossly evident focal neurologic deficits) MUSCULOSKELETAL: No swelling Vitals VITALS Vital Signs Date Time Temp Pulse Resp B/P (MAP) Pulse Ox O2 Delivery O2 Flow Rate FiO2 11/27/19 14:33 91 BiPAP/CPAP 11/27/19 11:51 3.0 11/27/19 11:00 97.9 99 18 100/70 (80) 97.9 Labs Labs Laboratory Tests Test 11/26/19 03:25 11/27/19 07:00 11/27/19 12:03 White Blood Count 11.5 x10^3/uL (4.0-11.0) 8.9 x10^3/uL (4.0-11.0) Red Blood Count 2.46 x10^6/uL (3.50-5.70) 2.39 x10^6/uL (3.50-5.40) Hemoglobin 7.7 g/dL (12.0-15.5) 7.7 g/dL (12.0-15.5) Hematocrit 25.0 % (36.0-47.0) 23.8 % (36.0-47.0) Mean Corpuscular Volume 101 fL (79-100) 100 fL (79-100) Mean Corpuscular Hemoglobin 31 pg (25-35) 32 pg (25-35) Mean Corpuscular Hemoglobin Concent 31 g/dL (31-37) 32 g/dL (31-37) Red Cell Distribution Width 12.8 % (11.5-14.5) 12.7 % (11.5-14.5) Platelet Count 135 x10^3/uL (140-400) 110 x10^3/uL (140-400) Neutrophils (%) (Auto) 84 % (31-73) 89 % (31-73) Lymphocytes (%) (Auto) 10 % (24-48) 6 % (24-48) Monocytes (%) (Auto) 5 % (0-9) 4 % (0-9) Eosinophils (%) (Auto) 1 % (0-3) 1 % (0-3) Basophils (%) (Auto) 0 % (0-3) 0 % (0-3) Neutrophils # (Auto) 9.6 x10^3/uL (1.8-7.7) 7.9 x10^3/uL (1.8-7.7) Lymphocytes # (Auto) 1.2 x10^3/uL (1.0-4.8) 0.6 x10^3/uL (1.0-4.8) Monocytes # (Auto) 0.6 x10^3/uL (0.0-1.1) 0.4 x10^3/uL (0.0-1.1) Eosinophils # (Auto) 0.1 x10^3/uL (0.0-0.7) 0.1 x10^3/uL (0.0-0.7) Basophils # (Auto) 0.0 x10^3/uL (0.0-0.2) 0.0 x10^3/uL (0.0-0.2) Absolute Reticulocyte Count 0.037 x10^6/uL (0.020-0.120) Percent Reticulocyte Count 1.5 % (0.5-2.3) Immature Reticulocyte Fraction 0.33 (0.20-0.60) Sodium Level 143 mmol/L (136-145) 142 mmol/L (136-145) Potassium Level 4.4 mmol/L (3.5-5.1) 4.3 mmol/L (3.5-5.1) Chloride Level 107 mmol/L (98-107) 105 mmol/L (98-107) Carbon Dioxide Level 38 mmol/L (21-32) 36 mmol/L (21-32) Anion Gap (6-14) 1 (6-14) Blood Urea Nitrogen 18 mg/dL (7-20) 11 mg/dL (7-20) Creatinine 0.9 mg/dL (0.6-1.0) 0.8 mg/dL (0.6-1.0) Estimated GFR (Cockcroft-Gault) 61.5 70.5 Glucose Level 105 mg/dL (70-99) 116 mg/dL (70-99) Calcium Level 8.4 mg/dL (8.5-10.1) 8.6 mg/dL (8.5-10.1) Iron Level 16 ug/dL (50-170) Total Iron Binding Capacity 248 ug/dL (250-450) Iron Saturation 6 % (15-34) Vitamin B12 Level 974 pg/mL (247-911) Digoxin Level 0.5 ng/mL (0.9-2.0) Digoxin Last Dose Date Digoxin Last Dose Time 0900 Triglycerides Level 57 mg/dL (0-150) Cholesterol Level 143 mg/dL (0-200) LDL Cholesterol, Calculated 82 mg/dL (0-100) VLDL Cholesterol, Calculated 11 mg/dL (0-40) Non-HDL Cholesterol Calculated 93 mg/dL (0-129) HDL Cholesterol 50 mg/dL (40-60) Cholesterol/HDL Ratio 2.9 Thyroid Stimulating Hormone (TSH) 0.434 uIU/mL (0.358-3.74) O2 Saturation 96 % (92-99) Arterial Blood pH 7.23 (7.35-7.45) Arterial Blood pCO2 at Patient Temp 71 mmHg (35-46) Arterial Blood pO2 at Patient Temp 89 mmHg (65-108) Arterial Blood HCO3 30 mmol/L (21-28) Arterial Blood Base Excess 1 mmol/L (-3-3) FiO2 32 Laboratory Tests Test 11/27/19 07:00 11/27/19 12:03 White Blood Count 8.9 x10^3/uL (4.0-11.0) Red Blood Count 2.39 x10^6/uL (3.50-5.40) Hemoglobin 7.7 g/dL (12.0-15.5) Hematocrit 23.8 % (36.0-47.0) Mean Corpuscular Volume 100 fL (79-100) Mean Corpuscular Hemoglobin 32 pg (25-35) Mean Corpuscular Hemoglobin Concent 32 g/dL (31-37) Red Cell Distribution Width 12.7 % (11.5-14.5) Platelet Count 110 x10^3/uL (140-400) Neutrophils (%) (Auto) 89 % (31-73) Lymphocytes (%) (Auto) 6 % (24-48) Monocytes (%) (Auto) 4 % (0-9) Eosinophils (%) (Auto) 1 % (0-3) Basophils (%) (Auto) 0 % (0-3) Neutrophils # (Auto) 7.9 x10^3/uL (1.8-7.7) Lymphocytes # (Auto) 0.6 x10^3/uL (1.0-4.8) Monocytes # (Auto) 0.4 x10^3/uL (0.0-1.1) Eosinophils # (Auto) 0.1 x10^3/uL (0.0-0.7) Basophils # (Auto) 0.0 x10^3/uL (0.0-0.2) Sodium Level 142 mmol/L (136-145) Potassium Level 4.3 mmol/L (3.5-5.1) Chloride Level 105 mmol/L (98-107) Carbon Dioxide Level 36 mmol/L (21-32) Anion Gap 1 (6-14) Blood Urea Nitrogen 11 mg/dL (7-20) Creatinine 0.8 mg/dL (0.6-1.0) Estimated GFR (Cockcroft-Gault) 70.5 Glucose Level 116 mg/dL (70-99) Calcium Level 8.6 mg/dL (8.5-10.1) Triglycerides Level 57 mg/dL (0-150) Cholesterol Level 143 mg/dL (0-200) LDL Cholesterol, Calculated 82 mg/dL (0-100) VLDL Cholesterol, Calculated 11 mg/dL (0-40) Non-HDL Cholesterol Calculated 93 mg/dL (0-129) HDL Cholesterol 50 mg/dL (40-60) Cholesterol/HDL Ratio 2.9 Thyroid Stimulating Hormone (TSH) 0.434 uIU/mL (0.358-3.74) O2 Saturation 96 % (92-99) Arterial Blood pH 7.23 (7.35-7.45) Arterial Blood pCO2 at Patient Temp 71 mmHg (35-46) Arterial Blood pO2 at Patient Temp 89 mmHg (65-108) Arterial Blood HCO3 30 mmol/L (21-28) Arterial Blood Base Excess 1 mmol/L (-3-3) FiO2 32 Assessment/Plan Assessment/Plan Assessment: Reported history of MDS COPD CKD, stage III Acute on chronic hypoxic hypercapnic respiratory failure Generalized weakness History of tobacco abuse Recommendations: -We will obtain additional records from [facility] and Dr. Veronica's office -Reviewed results of iron studies and B12 level that are suggestive of anemia of chronic disease. I recommend checking erythropoietin and reticulocyte count -Continue supportive care for COPD and acute on chronic respiratory failure per Dr. Franco -Recommend outpatient follow-up for consideration of LINDA therapy -Can consider outpatient bone marrow biopsy if she is interested in discussing other therapies -Thank you for the consult Shayne Terrazas MD Medical Oncology/Hematology Ph: [phone] AUSTIN TERRAZAS MD Nov 27, 2019 15:17
[2019-11-27 15:32] LABS: PO2 ABG < 42 mmHg (65-108); SAT O2 ABG 70 % (92-99)
[2019-11-27 15:33] LABS: FIO2 ABG 25
[2019-11-27 17:00] VITALS: BP 115/55
--- NOTE | 2019-11-27 17:00 | NUR ---
received patient from as transfer ,hooked up to ger,bi-pap 20/6 40%fio2 rate 20 ,patient confused, able to answer few questions, sa02 around 90-92 %, will check abg at 1800, leave on bi-pap, daughters at bedside requesting transfer to [facility], gearcase assembler sent info earlier to [facility]. will transfer when room available.
[2019-11-27 17:56] LABS: BASE EXCESS ABG 7 mmol/L (-3-3); HCO3 ABG 36 mmol/L (21-28); PO2 ABG 99 mmHg (65-108); SAT O2 ABG 97 % (92-99)
[2019-11-27 17:59] LABS: PCO2 ABG 83 mmHg (35-46)
[2019-11-27 18:00] VITALS: BP 132/58
--- NOTE | 2019-11-27 18:45 | NUR ---
[facility] here for transfere to [facility] per family request, receiving Dr. Jessi Ruano. patient left on bi-papa 29/08 rate 20 35% fio2 abg and report called to [facility] ICU at [facility]. family here upon discharge. belonging left with family. patient stable upon discharge, NS at 75 right hand #22 iv inserted
[2019-11-27] MEDS ORDERED: BUDESONIDE 0.5 MG/2 ML NEBU. NEB SCH (20:00)
[2019-11-30 08:44] LABS: PCO2 ABG 73 mmHg (35-46)
== END 2019-11-27 18:45 | disposition short-term general hospital (02) | DRG 871 ==
LOC: ER 03:09 → 6 SOUTH 04:37 → 4 NORTH 11-26 07:00 → 1 WEST ICU 11-27 16:05
PROVIDERS: ADMIT Internal Medicine; ATTEND Internal Medicine
DX: A41.9 Sepsis, unspecified organism (principal); N17.0 Acute kidney failure with tubular necrosis; J96.21 Acute and chronic respiratory failure with hypoxia; J96.22 Acute and chronic respiratory failure with hypercapnia; N39.0 Urinary tract infection, site not specified; I13.0 Hypertensive heart and chronic kidney disease with heart failure and stage 1 through stage 4 chronic kidney disease, or unspecified chronic kidney disease; D50.9 Iron deficiency anemia, unspecified; D63.8 Anemia in other chronic diseases classified elsewhere; F41.9 Anxiety disorder, unspecified; I48.0 Paroxysmal atrial fibrillation; I50.9 Heart failure, unspecified; J43.9 Emphysema, unspecified; N18.3 Chronic kidney disease, stage 3 (moderate); Z20.828 Contact with and (suspected) exposure to other viral communicable diseases; Z80.9 Family history of malignant neoplasm, unspecified; Z82.49 Family history of ischemic heart disease and other diseases of the circulatory system; Z87.891 Personal history of nicotine dependence; Z90.49 Acquired absence of other specified parts of digestive tract; Z92.21 Personal history of antineoplastic chemotherapy; Z99.81 Dependence on supplemental oxygen; Z88.2 Allergy status to sulfonamides; D53.9 Nutritional anemia, unspecified; D46.9 Myelodysplastic syndrome, unspecified
CPT/HCPCS: 36415; 36600; 71250; 74176; 80048; 80053; 80061; 80162; 81001; 82553; 82607; 82805; 83540; 83550; 83605; 83690; 83735; 84443; 84484; 85007; 85025; 85045; 85610; 85730; 87086; 93005; 93306; 94640; 94660; 94760; 96361; 96372; 96374; 96375; 99285; J0500; J0696; J1650; J2405; J3010; J3490; J7030; J7040; 97110-GP; 97116-GP; 97530-GO; 97535-GO; G0378; J7613; U0003-CS